=== PATIENT | male | born 1955 | race Caucasian/White ===

== ENCOUNTER 2020-03-10 10:37 | Emergency (ER) | payer MEDICARE, SELFPAY ==
[2020-03-10] VITALS (8 sets, daily range): BP systolic 105–129; BP diastolic 72–86; PULSE 102–104; RESP 18–24; TEMP 37; O2SAT 78–96
--- NOTE | 2020-03-10 10:39 | ED.GENADUL_ITS ---
Discharge Plan Disposition Patient Disposition: AGAINST MEDICAL ADVICE Condition: Serious Discharge Details Chief Complaint: GenMedical Clinical Impression: Hypoxia, Ascites, Pleural effusion, bilateral, Acute liver disease, UTI (urinary tract infection) Primary Care Provider: Jenny Khanna ED Provider: Tere Joseph Home Meds and New Rx's Prescriptions: New cephalexin [Keflex] 500 mg capsule 500 mg PO BID 7 Days Qty: 14 RF: 0 Continued cyanocobalamin (vitamin B-12) [Vitamin B-12] 500 mcg tablet 500 mcg PO DAILY RF: 0 Discharge Instructions Instructions: Cirrhosis (ED), Ascites (ED), Hypoxia (ED) Additional Instructions: You are leaving the hospital AGAINST MEDICAL ADVICE. Your oxygen level is extremely low. Your CAT scan today noted liver disease and fluid in your abdomen and lungs. It is also suspected that you possibly have COPD (chronic obstructive pulmonary disease) from your longstanding smoking history. It is suspected that you likely have liver disease from your longstanding alcohol use. Your fatigue could be due to possible causes, such as an infection in your urine, fluid in your lungs and abdomen, or liver disease. You were given an antibiotic for a possible infection in your urine. You were also given an inhaler to use every day which may help with your breathing and low oxygen level. Follow-up with your primary care doctor today or early Friday morning. Return immediately to the emergency department if you develop any worsening or new concerning symptoms. Discharge Data Discharge Physician: Tere Joseph Medical Decision Making 1130 -- 65yo M w/ no diagnosed medical history who has not seen a doctor for many years presents for fatigue, abdominal bloating and mild discomfort and constipation for 1 week and b/l lower extremity edema x 2 days. Pt appears somewhat disheveled, smells strong of tobacco with abril complexion. O2 sat 80s on room air. He denies any acute complaint of shortness of breath. He has wheezing and rhonchi throughout. Mild to moderate abdominal distention without significant tenderness. He has 1+ bilateral lower extremity edema. Suspect most likely cirrhosis, ascites. Differential could also include pancreatitis, small bowel obstruction. Will place an IV, screening labs, small bolus fluids, CT chest abdomen and pelvis. 1300 --labs and imaging reviewed. Troponin negative. BNP 10471. Lipase normal. Urinalysis notes 20-[address] W[address] and trace leukocytes[address] CT reviewed with radiology which noted small bilateral pleural effusions, liver disease with small amount of ascites but no acute lung or abdominal abnormality. Patient reassessed -oxygen saturation low to mid 90s on 3 L, decreased to high 70s low 80s on room air. Discussed with patient that I suspect he is underlying COPD and recommend that he stay for further evaluation and referral for outpatient management of his newly diagnosed cirrhosis and ascites. Patient is refusing to stay. Despite my efforts, the patient has decided to leave against medical advice. He has a normal mental status and full decisional capacity. The patient understands his condition and the risks of leaving AMA, including BUT NOT LIMITED TO permanent disability, , etc., and has had an opportunity to ask questions about his medical condition. The patient has been informed that he may return for care at any time, and has been referred to his local medical physician for follow up ANMOL. Case was also discussed with Jenny Khanna who had a telemedicine visit with him last week but has never seen him before. She was informed of the results today and recommendation for admission and that patient was leaving AMA. I was able to obtain patient's outpatient labs which were ordered last week from blood drawn today. Patient is advised to call his PCP office today or Friday for follow-up as soon as possible. Patient also stated that he does not have an advance directive but stated to me that he did not want CPR or intubation if needed. He was given a dose of Keflex as well as Symbicort here and for home. Usual and customary return precautions given prior to discharge. Medical Records Medical records reviewed: Yes I reviewed the patient's medical records. Imaging Data Radiologic Study: Radiologist's impression: CT CHEST PE ABD PELVIS W CLINICAL HISTORY: abd bloating, constipation, hypoxic, ? PE, cirrhosis, ascites TECHNIQUE: Imaging Protocol: Axial computed tomography images with coronal and sagittal reformatted images were created and reviewed CONTRAST MATERIAL: Intravenous: Omnipaque 350 Contrast volume:structure 100 mL d data in ml Oral: No COMPARISON: No exams were available for comparison FINDINGS: Pulmonary Arteries: No evidence of filling defect to suggest pulmonary emboli. Tracheobronchial tree: Patent where visualized. Mediastinum and Sarita: No dominant adenopathy or fluid collection. Pulmonary parenchyma: Dependent atelectatic changes are seen in the lung bases. Centrilobular emphysematous changes are present. No pulmonary nodules are present. Pleura: Small bilateral pleural effusions. No pneumothorax. Heart: Mild cardiomegaly. Prominent right atrial enlargement. No coronary artery calcifications are seen. No pericardial effusion. Aorta: Thoracic aorta non-dilated. No dissection. Atherosclerosis. Bones: Degenerative changes in the spine. ABDOMEN: Liver: Normal density. No measurable mass. Nodular contour of the liver suggesting hepatic cirrhosis. Portal, Superior Mesenteric, and Splenic Veins: Unremarkable. Gallbladder and Biliary Tract: No radiodense calculus or dilation. Pancreas: Normal density, no abnormal calcifications or inflammatory process. Spleen: Normal. Adrenals: No masses seen. Kidneys: Normal size, contour and axis. No radiodense stones or obstructive uropathy. No masses seen. Abdominal Aorta: Abdominal portion non-dilated. Atherosclerosis. Bowel: No obstruction or bowel wall thickening. Appendix is unremarkable. Moderate amount of retained stool. Peritoneal Cavity: Moderate amount of abdominal and pelvic ascites. Lymph Nodes: Within normal limits. Bones: Degenerative changes are present. Soft Tissues: Diffuse subcutaneous edema. PELVIS: Bladder: Symmetric distention, no gross wall thickening. Reproductive Organs: Unremarkable as visualized. Prostatic calcifications are present. Lymph Nodes: Within normal limits. Bones: Degenerative changes are present. IMPRESSION: 1. No evidence of pulmonary embolus, thoracic aortic dissection or aneurysm. 2. Small bilateral pleural effusions. 3. Cardiomegaly. 4. Bilateral basilar infiltrates which may represent atelectasis or pneumonia. 5. COPD. 6. Findings consistent with hepatic cirrhosis and moderate ascites. 7. No acute abdominal or pelvic process. 8. The findings were discussed with the emergency department on the date of the examination. Lab Data Lab results reviewed: Yes I reviewed the patient's lab results. Labs: 03/10/20 11:30 Urine - Reflex from Ua Urine Culture - Pending Laboratory Tests Range/Units 03/10/20 03/10/20 03/10/20 11:00 11:00 11:00 WBC (4.4-10.8) k/cumm 8.21 RBC (4.50-6.00) m/cumm 4.62 Hgb (13.5-17.5) g/dL 16.4 Hct (40.0-50.0) % 48.5 MCV (80-95) fL 105.0 H MCH (27.0-33.0) pg 35.5 H MCHC (32.0-36.0) g/dL 33.8 RDW (11.8-14.1) % 15.8 H Plt Count (130-400) x1000/uL 200 MPV (8.0-11.0) fL 9.0 Immature Gran % % 0.1 Neutrophils % 65.3 Lymphocytes % 20.3 Monocytes % 12.1 Eosinophils % 1.8 Basophils % 0.4 Absolute Neutrophils (1.2-6.7) k/cumm 5.36 Absolute Lymphocytes (1.2-3.4) k/cumm 1.67 Absolute Monocytes (0.11-0.7) k/cumm 0.99 H Absolute Eosinophils (0.0-0.7) k/cumm 0.15 Absolute Basophils (0.0-0.2) k/cumm 0.03 PT (9.3-11.0) sec 12.7 H INR (0.9-1.1) 1.3 H APTT (21.0-31.4) sec 25.8 Sodium (136-145) mmol/L 133 L Potassium (3.5-5.1) mmol/L 4.9 Chloride (98-107) mmol/L 95 L Carbon Dioxide (21.0-32.0) mmol/L 36.0 H Anion Gap (3-11) mmol/L 2.0 L BUN (7-18) mg/dL 28 H Creatinine (0.70-1.30) mg/dL 1.18 Estimated GFR/1.73 m2 (mL/min/1.73m2) >= 60.00 Glucose (74-106) mg/dL 102 Hemoglobin A1c (3.8-5.6) % Calcium (8.5-10.1) mg/dL 8.7 Magnesium (1.8-2.4) mg/dL 1.9 Total Bilirubin (0.2-1.0) mg/dL 0.9 AST (15-37) U/L 26 ALT (16-63) U/L 37 Alkaline Phosphatase (46-116) U/L 113 Troponin I (<0.06) ng/Ml < 0.05 NT-Pro-B Natriuret Pep (<300) pg/mL 88143 H Total Protein (6.4-8.2) g/dL 6.9 Albumin (3.4-5.0) g/dL 3.3 L Triglycerides (<150) mg/dL Total Cholesterol (<200) mg/dL LDL Cholesterol, Calc (<100) mg/dL HDL Cholesterol (40-60) mg/dL Lipase (73-393) U/L TSH (0.36-3.74) uIU/mL Urine Color (Yellow) Urine Clarity (Clear) Urine pH (5-8) Ur Specific [place] (1.005-1.025) Urine Protein (Negative) mg/dL Urine Ketones (Negative) mg/dL Urine Blood (Negative) Urine Nitrite (Negative) Urine Bilirubin (Negative) Urine Urobilinogen (Up TO 0.2) EU/dL Ur Leukocyte Esterase (Negative) Urine RBC (0-2) HPF Urine WBC (0-5) HPF Ur Epithelial Cells (Negative) HPF Urine Crystals (Negative) HPF Urine Bacteria (Negative) HPF Urine Casts (Negative) LPF Urine Mucus (Negative) Urine Other (Negative) Ur Culture Indicated? Urine Glucose (Negative) mg/dL Range/Units 03/10/20 03/10/20 03/10/20 11:00 11:00 11:00 WBC (4.4-10.8) k/cumm RBC (4.50-6.00) m/cumm Hgb (13.5-17.5) g/dL Hct (40.0-50.0) % MCV (80-95) fL MCH (27.0-33.0) pg MCHC (32.0-36.0) g/dL RDW (11.8-14.1) % Plt Count (130-400) x1000/uL MPV (8.0-11.0) fL Immature Gran % % Neutrophils % Lymphocytes % Monocytes % Eosinophils % Basophils % Absolute Neutrophils (1.2-6.7) k/cumm Absolute Lymphocytes (1.2-3.4) k/cumm Absolute Monocytes (0.11-0.7) k/cumm Absolute Eosinophils (0.0-0.7) k/cumm Absolute Basophils (0.0-0.2) k/cumm PT (9.3-11.0) sec INR (0.9-1.1) APTT (21.0-31.4) sec Sodium (136-145) mmol/L Potassium (3.5-5.1) mmol/L Chloride (98-107) mmol/L Carbon Dioxide (21.0-32.0) mmol/L Anion Gap (3-11) mmol/L BUN (7-18) mg/dL Creatinine (0.70-1.30) mg/dL Estimated GFR/1.73 m2 (mL/min/1.73m2) Glucose (74-106) mg/dL Hemoglobin A1c (3.8-5.6) % 6.3 H Calcium (8.5-10.1) mg/dL Magnesium (1.8-2.4) mg/dL Total Bilirubin (0.2-1.0) mg/dL AST (15-37) U/L ALT (16-63) U/L Alkaline Phosphatase (46-116) U/L Troponin I (<0.06) ng/Ml NT-Pro-B Natriuret Pep (<300) pg/mL Total Protein (6.4-8.2) g/dL Albumin (3.4-5.0) g/dL Triglycerides (<150) mg/dL 51 Total Cholesterol (<200) mg/dL 111 LDL Cholesterol, Calc (<100) mg/dL 63 HDL Cholesterol (40-60) mg/dL 38 L Lipase (73-393) U/L 62 TSH (0.36-3.74) uIU/mL 1.78 Urine Color (Yellow) Urine Clarity (Clear) Urine pH (5-8) Ur Specific [place] (1.005-1.025) Urine Protein (Negative) mg/dL Urine Ketones (Negative) mg/dL Urine Blood (Negative) Urine Nitrite (Negative) Urine Bilirubin (Negative) Urine Urobilinogen (Up TO 0.2) EU/dL Ur Leukocyte Esterase (Negative) Urine RBC (0-2) HPF Urine WBC (0-5) HPF Ur Epithelial Cells (Negative) HPF Urine Crystals (Negative) HPF Urine Bacteria (Negative) HPF Urine Casts (Negative) LPF Urine Mucus (Negative) Urine Other (Negative) Ur Culture Indicated? Urine Glucose (Negative) mg/dL Range/Units 03/10/20 03/10/20 11:30 13:21 WBC (4.4-10.8) k/cumm Cancelled RBC (4.50-6.00) m/cumm Cancelled Hgb (13.5-17.5) g/dL Cancelled Hct (40.0-50.0) % Cancelled MCV (80-95) fL Cancelled MCH (27.0-33.0) pg Cancelled MCHC (32.0-36.0) g/dL Cancelled RDW (11.8-14.1) % Cancelled Plt Count (130-400) x1000/uL Cancelled MPV (8.0-11.0) fL Cancelled Immature Gran % % Neutrophils % Lymphocytes % Monocytes % Eosinophils % Basophils % Absolute Neutrophils (1.2-6.7) k/cumm Absolute Lymphocytes (1.2-3.4) k/cumm Absolute Monocytes (0.11-0.7) k/cumm Absolute Eosinophils (0.0-0.7) k/cumm Absolute Basophils (0.0-0.2) k/cumm PT (9.3-11.0) sec INR (0.9-1.1) APTT (21.0-31.4) sec Sodium (136-145) mmol/L Potassium (3.5-5.1) mmol/L Chloride (98-107) mmol/L Carbon Dioxide (21.0-32.0) mmol/L Anion Gap (3-11) mmol/L BUN (7-18) mg/dL Creatinine (0.70-1.30) mg/dL Estimated GFR/1.73 m2 (mL/min/1.73m2) Glucose (74-106) mg/dL Hemoglobin A1c (3.8-5.6) % Calcium (8.5-10.1) mg/dL Magnesium (1.8-2.4) mg/dL Total Bilirubin (0.2-1.0) mg/dL AST (15-37) U/L ALT (16-63) U/L Alkaline Phosphatase (46-116) U/L Troponin I (<0.06) ng/Ml NT-Pro-B Natriuret Pep (<300) pg/mL Total Protein (6.4-8.2) g/dL Albumin (3.4-5.0) g/dL Triglycerides (<150) mg/dL Total Cholesterol (<200) mg/dL LDL Cholesterol, Calc (<100) mg/dL HDL Cholesterol (40-60) mg/dL Lipase (73-393) U/L TSH (0.36-3.74) uIU/mL Urine Color (Yellow) Yellow Urine Clarity (Clear) Clear Urine pH (5-8) 5.5 Ur Specific [place] (1.005-1.025) >= 1.030 H Urine Protein (Negative) mg/dL 100 H Urine Ketones (Negative) mg/dL Negative Urine Blood (Negative) Negative Urine Nitrite (Negative) Negative Urine Bilirubin (Negative) Negative Urine Urobilinogen (Up TO 0.2) EU/dL 0.2 Ur Leukocyte Esterase (Negative) Trace H Urine RBC (0-2) HPF 0-2 Urine WBC (0-5) HPF 20-50 H Ur Epithelial Cells (Negative) HPF Rare Urine Crystals (Negative) HPF Negative Urine Bacteria (Negative) HPF Negative Urine Casts (Negative) LPF 20-50 hyaline Urine Mucus (Negative) Negative Urine Other (Negative) Negative Ur Culture Indicated? Yes Urine Glucose (Negative) mg/dL Negative ECG Data Attestation: I personally reviewed and interpreted this ECG (s) as follows: Interpretation: Rate of 101's, sinus, PVCs. Right bundle branch block. No acute ST elevation or depression. FL 140. QTc 490. QRS 148. HPI General Mode of arrival: ambulatory . Date/Time Provider Initiated Documentation: 03/10/20 10:37 . Limitations to Documentation: no limitations . Information obtained by: patient . HPI Narrative: Patient is a 65-year-old male with no diagnosed past medical history who is not regularly followed by a primary care doctor who presents for abdominal bloating and some discomfort, constipation and fatigue for 1 week, and bilateral lower extremity swelling since yesterday. Patient had a telemedicine visit with his PCP office on March 03 for fatigue and labs including TSH, lipid panel, hemoglobin A1c, Lyme titer and CBC were ordered of which patient has not yet obtained. Patient states he has occasional abdominal discomfort but denies any at present. He states he had constipation 1 week ago which improved with taking Ex-Lax a few times this week. His last bowel movement was today and brown and formed. He does state he has a chronic cough due to his smoking but denies any sputum production or fever, chest pain or shortness of breath. He drinks 2-3 beers daily for several years and states his last drink was last night. He denies any vomiting. Related Data Home Medications Medication Instructions Recorded Confirmed cyanocobalamin (vitamin B-12) 500 500 mcg PO DAILY 03/03/20 03/03/20 mcg tablet cephalexin [Keflex] 500 mg PO BID 7 Days #14 cap 03/10/20 Previous Rx's Medication Instructions Recorded cephalexin [Keflex] 500 mg PO BID 7 Days #14 cap 03/10/20 Allergies Allergy/AdvReac Type Severity Reaction Status Date / Time No Known Allergies Allergy Verified 03/03/20 11:25 Review of Systems All systems reviewed & are unremarkable except as noted in HPI and below Constitutional Constitutional: Reports as per HPI, Denies chills, Reports fatigue, Denies fever(s) and Reports poor appetite Eyes Eyes: Denies blurry vision ENT Ears, Nose, Mouth, and Throat: Denies dizziness, Denies sore throat and Denies throat swelling Cardiovascular Cardiovascular: Denies chest pain and Denies dyspnea Respiratory Respiratory: Denies cough and Denies dyspnea Gastrointestinal Gastrointestinal: Denies abdominal pain, Reports bloating, Reports constipation, Denies diarrhea and Denies vomiting Genitourinary Genitourinary: Denies hematuria and Denies dysuria Musculoskeletal Musculoskeletal: Denies back pain and Denies numbness Integumentary/Breasts Skin/Breast: Denies lesions and Denies rash Neurologic Neurologic: Denies dizziness, Denies localized weakness and Denies numbness Endocrine Endocrine: Reports fatigue Allergic/Immunologic Allergic/Immunologic: Denies throat swelling [facility] Medical History (Updated 03/10/20 @ 12:53 by Tere Joseph DO) No significant past medical history (Acute) Surgical History (Updated 03/03/20 @ 08:37 by Dai Tejeda RN) H/O hernia repair (Chronic) 1964 and 1972 Family History (Updated 02/22/20 @ 11:09 by Srinivas Martin) Mother , age 87 No problems noted. Father , age 66 Cancer Brother , age 67 Stroke Brother No problems noted. Maternal Grandfather No problems noted. Paternal Grandfather , age 90 No problems noted. Maternal Grandmother , age 70+ No problems noted. Paternal Grandmother , age 90 No problems noted. Social History (Updated 02/22/20 @ 11:01 by Srinivas Martin) Smoking/Tobacco Use Status: Current every day Tobacco Type: cigarettes Tobacco: How many years used: 50 Quit status: not considering quitting Second Hand Exposure: Yes Alcohol Intake: current Alcohol Intake frequency: 3 or more drinks per day Alcohol type: beer Drug use: Never Substance use type: does not use Caregiver/Support person: No Household members: spouse Housing: house Communication Needs: Corrective Lenses Do you need help understanding health information?: Rarely Pets and animals: No Sexually active: Yes Do you think of yourself as: straight/heterosexual Current gender identity: male What is your relationship status?: How often do you talk on the phone with friends or family?: once per week How often do you get together with friends or relatives?: three or more times per week How often do you attend religion or alevism services?: decline to answer Do you belong to any clubs or organized social groups?: no Panel score (0-1 are the most socially isolated patients): 2 What type of physical activity do you participate in: other Details: farming, firewood Duration: decline to answer Frequency: daily Hortencia/Sabianist: [employer] Special hortencia needs: No Seatbelt use: sometimes Drive intox or ride w/intox road driver: No Exam Const General: cooperative, no acute distress and ill appearing chronically Orientation: alert, awake and oriented x3 HENMT Head: normal to inspection Face and sinus: normal facial exam Eyes General: appearance normal, both eyes and all related structures EOM: EOM intact bilaterally Neck Neck: normal visual inspection and No submandibular swelling Lymphatic: no lymphadenopathy noted Chest Chest: normal inspection of the chest and no tenderness Resp Effort & Inspection: normal respiratory effort and able to speak in complete sentences Auscultation: wheezes lower bilaterally and upper bilaterally Cardio Rate: regular rate Rhythm: regular rhythm GI Inspection: normal to inspection and distended Palpation: soft, not firm, not rigid and nontender Auscultation: normoactive bowel sounds Skin General skin exam: other (abril complexion, purplish color to ears, fingers) Neuro General: patient alert, patient awake and patient oriented x3 Cognition: normal cognition Speech: speech normal Motor: muscle tone normal throughout Sensory Exam: no sensory deficits noted Extrem General: normal to inspection, capillary refill normal, no calf tenderness bilaterally and edema Laterality: bilateral (1+ pitting) Psych Appearance: grossly normal Mental Status: mental status grossly normal Speech and Movement: speech and movement normal Affect: normal affect
[2020-03-10 11:12] LABS: Abs Immature Grans 0.01 k/cumm (0.0-0.09); Absolute Basophil Count 0.03 k/cumm (0.0-0.2); Absolute Eosinophil Count 0.15 k/cumm (0.0-0.7); Absolute Lymphocyte Count 1.67 k/cumm (1.2-3.4); Absolute Monocyte Count 0.99 k/cumm (0.11-0.7); Absolute Neutrophil Count 5.36 k/cumm (1.2-6.7); Basophils % 0.4; Eosinophils % 1.8; HCT 48.5 % (40.0-50.0); HGB 16.4 g/dL (13.5-17.5); Immature Grans % 0.1 %; Lymphocytes % 20.3; Mean Corp. HGB Concentration 33.8 g/dL (32.0-36.0); Mean Corpuscular Hemoglobin 35.5 pg (27.0-33.0); Monocytes % 12.1; Neutrophils % 65.3; Platelet Count 200 x1000/uL (130-400); RBC 4.62 m/cumm (4.50-6.00); RBC Distribution Width 15.8 % (11.8-14.1); White Blood Cell Count 8.21 k/cumm (4.4-10.8)
[2020-03-10] MEDS: Normal Saline 500 ML IV (11:14)
[2020-03-10 11:25] LABS: INR 1.3 (0.9-1.1); PTT Activated 25.8 sec (21.0-31.4); Prothrombin Time 12.7 sec (9.3-11.0)
[2020-03-10 11:32] LABS: ALT 37 U/L (16-63); AST 26 U/L (15-37); Albumin 3.3 g/dL (3.4-5.0); Alkaline Phosphatase 113 U/L (46-116); BUN 28 mg/dL (7-18); Bilirubin, Total 0.9 mg/dL (0.2-1.0); CREATININE 1.18 mg/dL (0.70-1.30); Calcium 8.7 mg/dL (8.5-10.1); Chloride 95 mmol/L (98-107); Glucose 102 mg/dL (74-106); Magnesium 1.9 mg/dL (1.8-2.4); NT-proBNP 13078 pg/mL (<300); Potassium 4.9 mmol/L (3.5-5.1); Sodium 133 mmol/L (136-145); Total Protein 6.9 g/dL (6.4-8.2); Troponin I < 0.05 ng/Ml (<0.06)
[2020-03-10 11:39] LABS: Bilirubin Negative (Negative); Blood Negative (Negative); Clarity Clear (Clear); Glucose Negative (Negative); Ketones Negative (Negative); Leukocyte Esterase Trace (Negative); Nitrite Negative (Negative); Specific Gravity >= 1.030 (1.005-1.025); Urobilinogen 0.2 EU/dL (Up TO 0.2); pH 5.5 (5-8)
[2020-03-10 11:51] LABS: Bacteria Negative HPF (Negative); Crystals Negative HPF (Negative); Epithelial Cells Rare HPF (Negative); Mucus Negative (Negative); Other Cells Negative (Negative); RBC 0-2 HPF (0-2); WBC 20-50 HPF (0-5)
[2020-03-10 11:52] LABS: C & S Indicated? Yes; Casts 20-50 Hyaline LPF (Negative)
--- NOTE | 2020-03-10 11:55 | DI.CT_ITS ---
EXAM: CT CHEST PE ABD PELVIS W CLINICAL HISTORY: abd bloating, constipation, hypoxic, ? PE, cirrhosis, ascites TECHNIQUE: Imaging Protocol: Axial computed tomography images with coronal and sagittal reformatted images were created and reviewed CONTRAST MATERIAL: Intravenous: Omnipaque 350 Contrast volume:structure 100 mL d data in ml Oral: No COMPARISON: No exams were available for comparison FINDINGS: Pulmonary Arteries: No evidence of filling defect to suggest pulmonary emboli. Tracheobronchial tree: Patent where visualized. Mediastinum and Sarita: No dominant adenopathy or fluid collection. Pulmonary parenchyma: Dependent atelectatic changes are seen in the lung bases. Centrilobular emphys ematous changes are present. No pulmonary nodules are present. Pleura: Small bilateral pleural effusions. No pneumothorax. Heart: Mild cardiomegaly. Prominent right atrial enlargement. No coronary artery calcifications are seen. No pericardial effusion. Aorta: Thoracic aorta non-dilated. No dissection. Atherosclerosis. Bones: Degenerative changes in the spine. ABDOMEN: Liver: Normal density. No measurable mass. Nodular contour of the liver suggesting hepatic cirrhosis. Portal, Superior Mesenteric, and Splenic Veins: Unremarkable. Gallbladder and Biliary Tract: No radiodense calculus or dilation. Pancreas: Normal density, no abnormal calcifications or inflammatory process. Spleen: Normal. Adrenals: No masses seen. Kidneys: Normal size, contour and axis. No radiodense stones or obstructive uropathy. No masses seen. Abdominal Aorta: Abdominal portion non-dilated. Atherosclerosis. Bowel: No obstruction or bowel wall thickening. Appendix is unremarkable. Moderate amount of retained stool. Peritoneal Cavity: Moderate amount of abdominal and pelvic ascites. Lymph Nodes: Within normal limits. Bones: Degenerative changes are present. Soft Tissues: Diffuse subcutaneous edema. PELVIS: Bladder: Symmetric distention, no gross wall thickening. Reproductive Organs: Unremarkable as visualized. Prostatic calcifications are present. Lymph Nodes: Within normal limits. Bones: Degenerative changes are present. IMPRESSION: 1. No evidence of pulmonary embolus, thoracic aortic dissection or aneurysm. 2. Small bilateral pleural effusions. 3. Cardiomegaly. 4. Bilateral basilar infiltrates which may represent atelectasis or pneumonia. 5. COPD. 6. Findings consistent with hepatic cirrhosis and moderate ascites. 7. No acute abdominal or pelvic process. 8. The findings were discussed with the emergency department on the date of the examination. RADIATION DOSE DELIVERED: DATA REPOSITORY: All CT scans at this facility are submitted to the National Radiology Data Registry (NRDR) Dose Index Registry (DIR) with the [employer] ([employer]). RADIATION OPTIMIZATION: All CT scans at this facility use at least one of these dose optimization te chniques: automated exposure control; mA and/or kV adjustment per patient size (includes targeted exa ms where dose is matched to clinical indication); or iterative reconstruction.
[2020-03-10 12:18] LABS: Lipase 62 U/L (73-393)
[2020-03-10] MEDS: Budesonide/Formoterol 160/4.5 6 GM 60 PUFF INH IH (12:52)
[2020-03-10] MEDS: Cephalexin 500 MG CAP PO (12:52)
[2020-03-10 14:00] LABS: Hemoglobin A1C 6.3 % (3.8-5.6)
[2020-03-10 14:04] LABS: Calculated LDL 63 mg/dL (<100); Cholesterol 111 mg/dL (<200); HDL Cholesterol 38 mg/dL (40-60); TSH 1.78 uIU/mL (0.36-3.74); Triglyceride 51 mg/dL (<150)
[2020-03-14 14:55] LABS: Lyme Ab w Rflx to Lyme Confirm Negative (Negative)
== END 2020-03-10 13:22 | disposition left against medical advice (07) ==
PROVIDERS: Emergency Provider Physician Assistant; PCP Nurse Practitioner
DX: R18.8 Other ascites; J90 Pleural effusion, not elsewhere classified; K76.9 Liver disease, unspecified; N39.0 Urinary tract infection, site not specified; Z53.29 Procedure and treatment not carried out because of patient's decision for other reasons; J44.9 Chronic obstructive pulmonary disease, unspecified; F17.210 Nicotine dependence, cigarettes, uncomplicated; R09.02 Hypoxemia
CPT/HCPCS: 71275; 74177; 80053; 80061; 83690; 85027; 93005; 96360; 99285; 81003; 81015; 83036; 83735; 83880; 84443; 84484; 85025; 85610; 85730; 86618; 87086; 93010; 99284

== ENCOUNTER 2020-03-12 17:17 | Inpatient (IN) | payer MEDICARE, SELFPAY ==
[2020-03-12] VITALS (19 sets, daily range): BP systolic 102–126; BP diastolic 70–87; PULSE 86–105; RESP 12–27; TEMP 36.6–36.8; O2SAT 71–96
--- NOTE | 2020-03-12 17:30 | DI.RAD_ITS ---
EXAM: XR PORTABLE CHEST AP CLINICAL HISTORY: shortness of breath, r/o acute disease TECHNIQUE: COMPARISON: CT CHEST PE ABD PELVIS W from 03/10/2020 FINDINGS: Portable upright chest at 1850 hours. There is mild cardiomegaly. Lungs are grossly clear. No sign ificant pleural effusion identified on this frontal film. IMPRESSION: No evidence of acute process.
--- NOTE | 2020-03-12 17:53 | W.ED.GENAD ---
Discharge Plan Disposition Patient Disposition: [facility] INPATIENT Condition: Stable Discharge Details Chief Complaint: SOB Clinical Impression: Hypoxia, Acute exacerbation of chronic obstructive pulmonary disease, Ascites due to alcoholic cirrhosis, Elevated troponin, Elevated brain natriuretic peptide (BNP) level Admit Date/Time: 03/12/20 19:12 Admit Provider: Saroj Swanson Attending Provider: Saroj Swanson Primary Care Provider: Jenny Khanna ED Provider: Tere Joseph Discharge Data Discharge Date/Time-TO BE ENTERED AT DEPARTURE: 03/12/20 20:20 Medical Decision Making 1730 -- 65yo male with a history of chronic alcohol and tobacco use found to have hypoxia and COPD, cirrhosis and small amount of ascites on work-up 2 days ago with left AMA from the ED presents for worsening abdominal bloating and dyspnea on exertion. Patient appears chronically ill. He does not appear in any worsening acute distress compared to 2 days ago. O2 sat 71% on room air which is consistent with where his saturations were 2 days ago prior to leaving AMA. He is afebrile. Negative COVID screening questions. He has diminished breath sounds throughout. His abdomen distention is small in size but more tense compared to 2 days ago. His lower extremity edema is stable from 2 days ago. Patient states he is agreeable with staying for admission today. Will admit for hypoxia and worsening abdominal distention. Suspect possibly COPD and worsening ascites, but also consider COVID, pneumonia, ACS, UTI. We give a dose of diuretics to help with fluid overload. Do not think that patient needs urgent paracentesis. Suspect he is also dehydrated and will start gentle fluid hydration. Bladder scan 280mL. Will obtain repeat labs and portable chest x-ray. EKG notes a rate of 92, sinus, right bundle branch block. No acute ST ischemic changes. 1899 --labs and imaging reviewed. Normal hemoglobin and platelets. INR 1.3. Troponin elevated but indeterminate at 0.08. BNP 38459 decreased from 13,078 two days ago. Chest x-ray negative for acute disease. pt reassessed - he states he feels better. Abdomen reexamined and appears less tense, nontender. Vitals stable. Case discussed with hospitalist - accepts patient for admission. Case discussed with surgery rat poisoner - will evaluate pt tomorrow. I do not see an indication for urgent paracentesis at this time as pt is improved. Medical Records Medical records reviewed: Yes I reviewed the patient's medical records. Imaging Data Radiologic Study: Radiologist's impression: XR Chest, 1 View Exam date and time: 03/12/2020 6:45 PM Age: 65 years old Clinical indication: Other: SOB, R/O acute disease TECHNIQUE: Imaging protocol: XR of the chest Views: 1 view. COMPARISON: CT CHEST PE ABD PELVIS W 03/10/2020 11:41 AM FINDINGS: Lungs: Emphysematous changes. No evidence of pneumonia, pulmonary vascular congestion, or pulmonary edema. Pleural space: No pneumothorax. No sizable pleural effusion. Heart/Mediastinum: Mild to moderate cardiomegaly. Bones/joints: Unremarkable. IMPRESSION: Emphysematous changes. No evidence of pneumonia, pulmonary vascular congestion, or pulmonary edema. Lab Data Lab results reviewed: Yes I reviewed the patient's lab results. Labs: 03/12/20 17:55 Urine - Reflex from Ua Urine Culture - Pending Laboratory Tests Range/Units 03/12/20 03/12/20 03/12/20 17:50 17:50 17:50 WBC (4.4-10.8) k/cumm RBC (4.50-6.00) m/cumm Hgb (13.5-17.5) g/dL Hct (40.0-50.0) % MCV (80-95) fL MCH (27.0-33.0) pg MCHC (32.0-36.0) g/dL RDW (11.8-14.1) % Plt Count (130-400) x1000/uL MPV (8.0-11.0) fL Immature Gran % % Neutrophils % Lymphocytes % Monocytes % Eosinophils % Basophils % Absolute Neutrophils (1.2-6.7) k/cumm Absolute Lymphocytes (1.2-3.4) k/cumm Absolute Monocytes (0.11-0.7) k/cumm Absolute Eosinophils (0.0-0.7) k/cumm Absolute Basophils (0.0-0.2) k/cumm RBC Morphology Polychromasia Macrocytosis PT (9.3-11.0) sec 13.5 H INR (0.9-1.1) 1.3 H APTT (21.0-31.4) sec 25.4 Sodium (136-145) mmol/L 136 Potassium (3.5-5.1) mmol/L 4.8 Chloride (98-107) mmol/L 97 L Carbon Dioxide (21.0-32.0) mmol/L 33.7 H Anion Gap (3-11) mmol/L 5.3 BUN (7-18) mg/dL 35 H Creatinine (0.70-1.30) mg/dL 1.08 Estimated GFR/1.73 m2 (mL/min/1.73m2) >= 60.00 Glucose (74-106) mg/dL 109 H Calcium (8.5-10.1) mg/dL 8.6 Magnesium (1.8-2.4) mg/dL 1.8 Total Bilirubin (0.2-1.0) mg/dL 1.1 H AST (15-37) U/L 30 ALT (16-63) U/L 44 Alkaline Phosphatase (46-116) U/L 95 Troponin I (<0.06) ng/Ml 0.08 H* NT-Pro-B Natriuret Pep (<300) pg/mL Total Protein (6.4-8.2) g/dL 6.4 Albumin (3.4-5.0) g/dL 3.0 L Lipase (73-393) U/L 67 Urine Color (Yellow) Urine Clarity (Clear) Urine pH (5-8) Ur Specific [place] (1.005-1.025) Urine Protein (Negative) mg/dL Urine Ketones (Negative) mg/dL Urine Blood (Negative) Urine Nitrite (Negative) Urine Bilirubin (Negative) Urine Urobilinogen (Up TO 0.2) EU/dL Ur Leukocyte Esterase (Negative) Urine RBC (0-2) HPF Urine WBC (0-5) HPF Ur Epithelial Cells (Negative) HPF Urine Crystals (Negative) HPF Urine Bacteria (Negative) HPF Urine Casts (Negative) LPF Urine Mucus (Negative) Urine Other (Negative) Ur Culture Indicated? Urine Glucose (Negative) mg/dL Range/Units 03/12/20 03/12/20 03/12/20 17:50 17:50 17:55 WBC (4.4-10.8) k/cumm 8.58 RBC (4.50-6.00) m/cumm 4.56 Hgb (13.5-17.5) g/dL 15.8 Hct (40.0-50.0) % 48.2 MCV (80-95) fL 105.7 H MCH (27.0-33.0) pg 34.6 H MCHC (32.0-36.0) g/dL 32.8 RDW (11.8-14.1) % 16.0 H Plt Count (130-400) x1000/uL 202 MPV (8.0-11.0) fL 9.2 Immature Gran % % 0.1 Neutrophils % 68.2 Lymphocytes % 18.9 Monocytes % 10.3 Eosinophils % 2.3 Basophils % 0.2 Absolute Neutrophils (1.2-6.7) k/cumm 5.85 Absolute Lymphocytes (1.2-3.4) k/cumm 1.62 Absolute Monocytes (0.11-0.7) k/cumm 0.88 H Absolute Eosinophils (0.0-0.7) k/cumm 0.20 Absolute Basophils (0.0-0.2) k/cumm 0.02 RBC Morphology See below Polychromasia Present Macrocytosis 1+ PT (9.3-11.0) sec INR (0.9-1.1) APTT (21.0-31.4) sec Sodium (136-145) mmol/L Potassium (3.5-5.1) mmol/L Chloride (98-107) mmol/L Carbon Dioxide (21.0-32.0) mmol/L Anion Gap (3-11) mmol/L BUN (7-18) mg/dL Creatinine (0.70-1.30) mg/dL Estimated GFR/1.73 m2 (mL/min/1.73m2) Glucose (74-106) mg/dL Calcium (8.5-10.1) mg/dL Magnesium (1.8-2.4) mg/dL Total Bilirubin (0.2-1.0) mg/dL AST (15-37) U/L ALT (16-63) U/L Alkaline Phosphatase (46-116) U/L Troponin I (<0.06) ng/Ml NT-Pro-B Natriuret Pep (<300) pg/mL 67458 H Total Protein (6.4-8.2) g/dL Albumin (3.4-5.0) g/dL Lipase (73-393) U/L Urine Color (Yellow) Yellow Urine Clarity (Clear) Clear Urine pH (5-8) 5.5 Ur Specific [place] (1.005-1.025) 1.025 Urine Protein (Negative) mg/dL 100 H Urine Ketones (Negative) mg/dL Trace H Urine Blood (Negative) Negative Urine Nitrite (Negative) Negative Urine Bilirubin (Negative) Negative Urine Urobilinogen (Up TO 0.2) EU/dL 1.0 H Ur Leukocyte Esterase (Negative) Small H Urine RBC (0-2) HPF Negative Urine WBC (0-5) HPF 10-20 H Ur Epithelial Cells (Negative) HPF Few Urine Crystals (Negative) HPF Negative Urine Bacteria (Negative) HPF Moderate Urine Casts (Negative) LPF 0-2 hyaline Urine Mucus (Negative) Heavy Urine Other (Negative) Negative Ur Culture Indicated? Yes Urine Glucose (Negative) mg/dL Negative ECG Data Attestation: I personally reviewed and interpreted this ECG (s) as follows: Interpretation: Rate of 92, sinus, right bundle branch block. No acute ST elevation or depression. KS 138. QTc 475. QRS 146. HPI General Mode of arrival: ambulatory. Date/Time Provider Initiated Documentation: 03/12/20 17:26. Limitations to Documentation: no limitations. Information obtained by: patient. HPI Narrative: Patient is a 65-year-old male with a history of chronic alcohol and tobacco use who presents for abdominal bloating and distention, decreased urination and dyspnea on exertion. Patient was here 2 days ago for constipation and abdominal bloating and was found to be hypoxic with evidence of cirrhosis and small ascites on CT. He was advised to stay for admission at that time but had declined and left AMA. At that time, an advanced directive was discussed and he had stated he would prefer DNR/DNI. Discussing this today, he states he is unsure what he would want. He denies any fever, chest pain, vomiting, diarrhea or constipation. He states he has had little urine output today. He states his lower extremity swelling has been constant. He has had a fairly stable appetite. He states he came here at the urging of his . He has not been seen regularly by a primary care doctor. Related Data Home Medications Medication Instructions Recorded Confirmed cyanocobalamin (vitamin B-12) 500 500 mcg PO DAILY 03/03/20 03/12/20 mcg tablet cephalexin [Keflex] 500 mg PO BID 7 Days #14 cap 03/10/20 03/12/20 Previous Rx's Medication Instructions Recorded cephalexin [Keflex] 500 mg PO BID 7 Days #14 cap 03/10/20 Allergies Allergy/AdvReac Type Severity Reaction Status Date / Time No Known Allergies Allergy Verified 03/12/20 17:28 General Stated Complaint: SOB OMER: 2 Review of Systems All systems reviewed & are unremarkable except as noted in HPI and below Constitutional Constitutional: Reports as per HPI, Denies chills and Denies fever(s) Eyes Eyes: Denies blurry vision ENT Ears, Nose, Mouth, and Throat: Denies dizziness, Denies sore throat and Denies throat swelling Cardiovascular Cardiovascular: Denies chest pain and Denies dyspnea Respiratory Respiratory: Denies cough and Denies dyspnea Gastrointestinal Gastrointestinal: Denies abdominal pain, Denies diarrhea and Denies vomiting Genitourinary Genitourinary: Denies hematuria and Denies dysuria Musculoskeletal Musculoskeletal: Denies back pain and Denies numbness Integumentary/Breasts Skin/Breast: Denies lesions and Denies rash Neurologic Neurologic: Denies dizziness, Denies localized weakness and Denies numbness Allergic/Immunologic Allergic/Immunologic: Denies throat swelling [facility] Medical History (Updated 03/13/20 @ 01:54 by Saroj Swanson) Cirrhosis with alcoholism (Acute) Diagnosis per CT findings COPD (chronic obstructive pulmonary disease) (Chronic) No formal PFTs have been performed. Diagnosis based on emphysematous changes on chest x-ray and CT scan and longstanding smoking history Surgical History H/O hernia repair (Chronic) 1964 and 1972 Family History Mother , age 87 No problems noted. Father , age 66 Cancer Brother , age 67 Stroke Brother No problems noted. Maternal Grandfather No problems noted. Paternal Grandfather , age 90 No problems noted. Maternal Grandmother , age 70+ No problems noted. Paternal Grandmother , age 90 No problems noted. Social History (Updated 02/22/20 @ 11:01 by Srinivas Martin) Smoking/Tobacco Use Status: Current every day Tobacco Type: cigarettes Tobacco: How many years used: 50 Quit status: not considering quitting Second Hand Exposure: Yes Alcohol Intake: current Alcohol Intake frequency: 3 or more drinks per day Alcohol type: beer Drug use: Never Substance use type: does not use Caregiver/Support person: No Household members: spouse Housing: house Communication Needs: Corrective Lenses Do you need help understanding health information?: Rarely Pets and animals: No Sexually active: Yes Do you think of yourself as: straight/heterosexual Current gender identity: male What is your relationship status?: How often do you talk on the phone with friends or family?: once per week How often do you get together with friends or relatives?: three or more times per week How often do you attend sabianism or sabianism services?: decline to answer Do you belong to any clubs or organized social groups?: no Panel score (0-1 are the most socially isolated patients): 2 What type of physical activity do you participate in: other Details: farming, firewood Duration: decline to answer Frequency: daily [place]/Synagogue: Judaism Special hortencia needs: No Seatbelt use: sometimes Drive intox or ride w/intox train driver: No Do you feel safe at home: Yes Do you feel safe in your relationship?: Yes Exam Const General: cooperative and ill appearing chronically Orientation: alert, awake and oriented x3 HENMT Head: normal to inspection Ears: hearing grossly normal bilaterally and external ears normal General nose exam: external nose normal Face and sinus: normal facial exam Mouth: oral mucosae normal Teeth and gingiva: dentition normal Throat: posterior oropharynx normal Eyes General: appearance normal, both eyes and all related structures Eyelids: eyelids normal Pupils: PERRL EOM: EOM intact bilaterally Neck Neck: normal visual inspection Lymphatic: no lymphadenopathy noted Chest Chest: normal inspection of the chest Resp Effort & Inspection: normal respiratory effort and able to speak in complete sentences Auscultation: wheezes scattered wheezes Cardio Rate: regular rate Rhythm: regular rhythm GI Inspection: normal to inspection Palpation: soft, not firm, no guarding, no hepatosplenomegaly, no masses and nontender Auscultation: normal bowel sounds Back/Spine/Pelvis Back: no CVA tenderness Neuro General: patient alert and patient awake Cognition: normal cognition Speech: speech normal Gait: normal gait Motor: muscle tone normal throughout Sensory Exam: no sensory deficits noted Extrem General: normal to inspection, full ROM and capillary refill normal Psych Appearance: grossly normal Mental Status: mental status grossly normal Speech and Movement: speech and movement normal Affect: normal affect Thought Process: normal Course Vital Signs Vital signs: Vital Signs Temperature 98.2 F 03/12/20 17:23 Pulse 105 H 03/12/20 17:23 Respiratory Rate 18 03/12/20 17:23 Blood Pressure 117/78 03/12/20 17:23 Pulse Oximetry 71 L 03/12/20 17:23 Temperature 98.2 F 03/12/20 17:23 Temperature Source Tympanic 03/12/20 17:23 Pulse 105 H 03/12/20 17:23 Respiratory Rate 18 03/12/20 17:23 Respiratory Effort Non-Labored 03/12/20 17:28 Blood Pressure 117/78 03/12/20 17:23 Blood Pressure Position Sitting 03/12/20 17:23 Pulse Oximetry 71 L 03/12/20 17:23 Oxygen Delivery Method Room Air 03/12/20 17:23 Oxygen Flow Rate 0 03/12/20 17:23 Pain Level 0 03/12/20 17:23
[2020-03-12] MEDS: Furosemide 40 MG/4 ML VIAL IVP (18:00)
[2020-03-12] MEDS: methylPREDNISolone SUCC 125 MG VIAL IVP (18:02)
[2020-03-12 18:05] LABS: Abs Immature Grans 0.01 k/cumm (0.0-0.09); Absolute Basophil Count 0.02 k/cumm (0.0-0.2); Absolute Lymphocyte Count 1.62 k/cumm (1.2-3.4); Absolute Monocyte Count 0.88 k/cumm (0.11-0.7); Absolute Neutrophil Count 5.85 k/cumm (1.2-6.7); Basophils % 0.2; Eosinophils % 2.3; HCT 48.2 % (40.0-50.0); HGB 15.8 g/dL (13.5-17.5); Immature Grans % 0.1 %; Lymphocytes % 18.9; Mean Corp. HGB Concentration 32.8 g/dL (32.0-36.0); Mean Corpuscular Hemoglobin 34.6 pg (27.0-33.0); Mean Corpuscular Volume 105.7 fL (80-95); Mean Platelet Volume 9.2 fL (8.0-11.0); Monocytes % 10.3; Neutrophils % 68.2; Platelet Count 202 x1000/uL (130-400); RBC 4.56 m/cumm (4.50-6.00); White Blood Cell Count 8.58 k/cumm (4.4-10.8)
[2020-03-12 18:05] LABS: Bilirubin Negative (Negative); Blood Negative (Negative); Clarity Clear (Clear); Glucose Negative (Negative); Ketones Trace mg/dL (Negative); Leukocyte Esterase Small (Negative); Nitrite Negative (Negative); Specific Gravity 1.025 (1.005-1.025); pH 5.5 (5-8)
[2020-03-12 18:15] LABS: Bacteria Moderate HPF (Negative); C & S Indicated? Yes; Casts 0-2 Hyaline LPF (Negative); Crystals Negative HPF (Negative); Epithelial Cells Few HPF (Negative); Mucus Heavy (Negative); Other Cells Negative (Negative); RBC Negative HPF (0-2)
[2020-03-12 18:16] LABS: Lipase 67 U/L (73-393); Magnesium 1.8 mg/dL (1.8-2.4)
[2020-03-12 18:17] LABS: PTT Activated 25.4 sec (21.0-31.4); Prothrombin Time 13.5 sec (9.3-11.0)
[2020-03-12 18:19] LABS: INR 1.3 (0.9-1.1); Macrocytosis 1+; Polychromasia Present
[2020-03-12 18:22] LABS: ALT 44 U/L (16-63); AST 30 U/L (15-37); Alkaline Phosphatase 95 U/L (46-116); Anion Gap 5.3 mmol/L (3-11); BUN 35 mg/dL (7-18); Bilirubin, Total 1.1 mg/dL (0.2-1.0); CO2 33.7 mmol/L (21.0-32.0); CREATININE 1.08 mg/dL (0.70-1.30); Calcium 8.6 mg/dL (8.5-10.1); Chloride 97 mmol/L (98-107); Glucose 109 mg/dL (74-106); Potassium 4.8 mmol/L (3.5-5.1); Sodium 136 mmol/L (136-145); Total Protein 6.4 g/dL (6.4-8.2)
[2020-03-12 18:25] LABS: Troponin I 0.08 ng/Ml (<0.06)
[2020-03-12 18:27] LABS: NT-proBNP 11728 pg/mL (<300)
[2020-03-12] MEDS: Albuterol HFA 8 GM 60 PUFF INH IH (18:41)
[2020-03-12] MEDS: Normal Saline 1,000 ML 80 ML IV (18:42)
--- NOTE | 2020-03-12 19:00 | DI.VRAD_ITS ---
PROCEDURE INFORMATION: Exam: XR Chest, 1 View Exam date and time: 03/12/2020 6:45 PM Age: 65 years old Clinical indication: Other: SOB, R/O acute disease TECHNIQUE: Imaging protocol: XR of the chest Views: 1 view. COMPARISON: CT CHEST PE ABD PELVIS W 03/10/2020 11:41 AM FINDINGS: Lungs: Emphysematous changes. No evidence of pneumonia, pulmonary vascular congestion, or pulmonary edema. Pleural space: No pneumothorax. No sizable pleural effusion. Heart/Mediastinum: Mild to moderate cardiomegaly. Bones/joints: Unremarkable. IMPRESSION: Emphysematous changes. No evidence of pneumonia, pulmonary vascular congestion, or pulmonary edema. Dictated and Authenticated by: Reggie Farris MD. Ordering:KODY Carranza MD
[2020-03-12 19:34] LABS: BE 11.1 mmol/L (-3-3); HCO3 37 mmol/L (22-28); pH 7.35 (7.35-7.45); pO2 65 mmHg (83-108); sO2 90 % (94-98); tCO2 32 mmol/L (22-29)
[2020-03-12 19:38] LABS: pCO2 67 mmHg (34-47)
--- NOTE | 2020-03-12 21:58 | HPE_ITS ---
Date of service: 03/12/20 Time of Service: 21:58 Assessment and Plan Assessment and plan (1) Right heart failure: Status: Acute Assessment and plan: lasix drip, monitor urine output, continue serial tro ponins; obtain formal echocardiogram once his COVID 19 test rules out. monitor electrolytes. consider PSG for evaluation of VEDA once he is discharged. Consider inpatient BIPAP during sleep. For now he is being ruled out for COVID 19 and therefore I have not initiated BIPAP as long as his SPO2 remains adequate i.e. 85-90%. However if he becomes somnolent and non-arouseable, I would have a high index of suspicion for hypercarbic respiratory failure. For now he seems to be compensated, i.e. CO2 although in the 60's% his pH is 7.35. Although I did not save images of US of his legs, his veins in both legs were compressible and therefore he has no evidence for DVT, therefore I do not feel that he has a P.E. as a cause for his pulmonary hypertension. However, if he is not responding to lasix overnight then we may need to reconsider P.E. as a cause, however, he underwent a CT of his chest as well as his abdomen and pelvis on Saturday 03/10 and he had no P.E. then. Qualifiers: Heart failure chronicity: unspecified Qualified Code(s): I50.810 - Right heart failure, unspecified (2) Elevated troponin: Status: Acute Assessment and plan: probably d/t right heart strain from RV volume/pressure overload, although can not exclude ischemic event, his LV function is well preserved on POCUS exam. Will cycle his troponin levels to ensure that they plateau and fall. (3) Elevated brain natriuretic peptide (BNP) level: Status: Acute Assessment and plan: secondary to above pullmonary HTN/RV strain (4) Acute exacerbation of chronic obstructive pulmonary disease: Status: Suspected Assessment and plan: Although he was signed out to me as a COPD exacerbation, I think his wheezing is more cardiac wheezing as he has bilateral B lines and evidence of RV strain and pulmonary HTN. He will continue to receive MDI bronchodilators for now and I will change his solumedrol to prednisone but limit him to short course. (5) Ascites: Status: Acute Assessment and plan: I expect that this will need paracentesis for both diagnostic purposes as well as to relieve his distension. This contributes to his work of breathing by pushing up on his diaphragm and therepeutic paracentesis will help with his breathing. Dr. Emmanuel can see him tomorrow for this. She was notified of the consult by Dr. Joseph. Qualifiers: Ascites type: due to alcoholic cirrhosis Qualified Code(s): K70.31 - Alcoholic cirrhosis of liver with ascites (6) Pleural effusion, bilateral: Status: Acute Assessment and plan: His pleural effusions are small and not amenable to thoracentesis. I think by controlling his volume status we can manage his pleural effusions. (7) Cirrhosis with alcoholism: Status: Acute Assessment and plan: This is a presumed dx based on his alcohol history. However, we are awaiting hepatitis studies and AFP marker. He should have a fo rmal abdominal US once his COVID 19 test is negative. He denies any hx of hallucinations or acute withdrawal. I will nevertheless put him on CIWA monitoring. Qualifiers: Ascites presence: with ascites Qualified Code(s): K70.31 - Alcoholic cirrhosis of liver with ascites History of Present Illness History of Present Illness Chief Complaint: shortness of breath, fatigue, abdominal bloating, leg edema Narrative: 65-year-old male with a history of chronic alcohol use and tobaccoism who it presented to the emergency department 2 days prior for evaluation of abdominal bloating and dyspnea on exertion, fatigue and constipation and bilateral lower extremity edema. He had an extensive work-up through the emergency department on March 10, [address] scan of the chest abdomen pelvis as well as lab work. CT of the chest abdomen pelvis showed no evidence of pulmonary embolus nor any aortic aneurysm or dissection. He was found to have cardiomegaly and bilateral small pleural effusions and bibasilar infiltrates suggestive of atelectasis as well as evidence for centrilobular emphysema and evidence for hepatic cirrhosis and moderate ascites. Lab work-up at that time showed negative troponins but an elevated proBNP of 13,000 normal lipase and urinalysis with pyuria. On presentation he was hypoxemic with oxygen saturation in the high 70s and low 80s on room air that corrected with 3 L/min per nasal cannula into the low to mid 90s. It was recommended that he be admitted for evaluation of his ascites but did patient declined admission. He was discharged home on Keflex for probable UTI. Patient re-presents to the emergency department with continued abdominal distention and discomfort and bilateral lower extremity edema and exertional dyspnea. He denies any fever or chills or dysuria. His urine cultures come back no growth at 48 hours. He underwent repeat laboratory testing and EKG and chest x-ray. CMP was remarkable for elevated BUN 35 with a normal creatinine 1.0 and an increased carbon dioxide level of 33.7. Total bilirubin was 1.1 otherwise LFTs were normal. Troponin level is slightly elevated but indetermina te at 0.08 however repeat level 4 hours later came down to 0.07. Repeat proBNP is still elevated 11,728. ABG demonstrates hypoxemia and hypercarbia with a pH of 7.35 and a PCO2 of 67 and a PO2 of 65 with a base excess of 11.1 and an oxygen saturation of 90%. His EKG is remarkable for a right bundle branch block with evidence of right ventricular strain rhythm is sinus rhythm at a rate of 92 bpm. Chest x-ray was read as showing emphysematous changes with no evidence of pneumonia and no evidence of pulmonary vascular congestion or pulmonary edema. There is mild to moderate cardiomegaly. Treatment in the emergency department included an albuterol MDI along with methylprednisolone 125 mg IV and was started on saline at 80 mL an hour however he was also given furosemide 40 mg IV.. Although the patient has no fever and no history of COVID-19 exposure because of his acute respiratory symptoms patient will undergo testing for COVID-19. He is admitted to the respiratory medical/surgical unit pending results of his COVID-19. Nasal swab for influenza was also obtained and found to be negative for influenza a and B antigens. As the patient has no fever and no purulent sputum and no leukocytosis antibiotics have not been initiated. He was signed out to me by the ER doctor is having COPD exacerbation along with liver cirrhosis and ascites. Dr. Joseph spoke with Dr. Aleena Emmanuel, general surgeon, regarding the patient's ascites and possible need for paracentesis. Review of Systems Constitutional Constitutional: Reports daytime sleepiness, Reports fatigue, Reports lethargy, Reports snoring and Reports weakness Eyes Eyes: Reports system reviewed and no additional complaints, except as documented ENT Ears, Nose, Mouth, and Throat: Reports system reviewed and no additional complaints, except as documented Cardiovascular Cardiovascular: Denies chest pain, Reports leg edema, Denies radiating jaw, neck or arm pain, Reports dyspnea, Reports dyspnea on exertion and Reports orthopnea Respiratory Respiratory: Denies change in phlegm color, Denies chest congestion, Reports cough, Denies hemoptysis, Denies excessive phlegm production, Denies pain on inspiration, Denies pain with cough, Reports dyspnea, Reports dyspnea on exertion, Reports snoring and Reports wheezing Gastrointestinal Gastrointestinal: Reports abdominal pain (Crampy), Denies melena, Reports bloating, Denies constipation (Last BM yesterday), Reports early satiety, Denies diarrhea, Denies nausea and Denies vomiting Genitourinary Genitourinary: Reports system reviewed and no additional complaints, except as documented Musculoskeletal Musculoskeletal: Reports system reviewed and no additional complaints, except as documented Integumentary/Breasts Skin/Breast: Reports system reviewed and no additional complaints, except as documented Neurologic Neurologic: Reports system reviewed and no additional complaints, except as documented and Reports weakness Psychiatric Psychiatric: Reports system reviewed and no additional complaints, except as documented Endocrine Endocrine: Reports fatigue Hematologic/Lymphatic Hematologic/Lymphatic: Reports system reviewed and no additional complaints, except as documented Allergic/Immunologic Allergic/Immunologic: Reports wheezing [facility] Medical History (Updated 03/13/20 @ 01:54 by Saroj Swanson) Cirrhosis with alcoholism (Acute) Diagnosis per CT findings COPD (chronic obstructive pulmonary disease) (Chronic) No formal PFTs have been performed. Diagnosis based on emphysematous changes on chest x-ray and CT scan and longstanding smoking history Surgical History H/O hernia repair (Chronic) 1964 and 1972 Family History Mother , age 87 No problems noted. Father , age 66 Cancer Brother , age 67 Stroke Brother No problems noted. Maternal Grandfather No problems noted. Paternal Grandfather , age 90 No problems noted. Maternal Grandmother , age 70+ No problems noted. Paternal Grandmother , age 90 No problems noted. Social History (Updated 02/22/20 @ 11:01 by Srinivas Martin) Smoking/Tobacco Use Status: Current every day Tobacco Type: cigarettes Tobacco: How many years used: 50 Quit status: not considering quitting Second Hand Exposure: Yes Alcohol Intake: current Alcohol Intake frequency: 3 or more drinks per day Alcohol type: beer Drug use: Never Substance use type: does not use Caregiver/Support person: No Household members: spouse Housing: house Communication Needs: Corrective Lenses Do you need help understanding health information?: Rarely Pets and animals: No Sexually active: Yes Do you think of yourself as: straight/heterosexual Current gender identity: male What is your relationship status?: How often do you talk on the phone with friends or family?: once per week How often do you get together with friends or relatives?: three or more times per week How often do you attend zoroastrianism or adventist services?: decline to answer Do you belong to any clubs or organized social groups?: no Panel score (0-1 are the most socially isolated patients): 2 What type of physical activity do you participate in: other Details: farming, firewood Duration: decline to answer Frequency: daily Hortencia/Pentecostal: Yazidi Special hortencia needs: No Seatbelt use: sometimes Drive intox or ride w/intox driver education road instructor: No Do you feel safe at home: Yes Do you feel safe in your relationship?: Yes Meds Home Medications and Allergies Home Medications Medication Instructions Recorded Confirmed Type cyanocobalamin (vitamin B-12) 500 500 mcg PO DAILY 03/03/20 03/12/20 History mcg tablet cephalexin [Keflex] 500 mg PO BID 7 Days #14 cap 03/10/20 03/12/20 Rx Allergies Allergy/AdvReac Type Severity Reaction Status Date / Time No Known Allergies Allergy Verified 03/12/20 17:28 Exam Narrative Exam Narrative: Middle-age male lying in bed in semi-recumbent position who upon my initial interview with him was falling asleep in mid sentence and unable to focus on my questions. I found that he had a oxygen facemask at 5 L/min and his oxygen saturation was in the high 90s. I took his facemask off briefly to allow him to desaturate into the low 80s and then reapplied his mask at 3 L/min and his saturations settle at 88 to 90%. Afterwards he was able to awaken and focus long enough to answer my questions. I found him to be alert and oriented person place time and circumstance. He was able to correctly name the hospital as well as why he came to the hospital as well as giving the correct month and year although he was off on the date and the month by 2 days. HEENT is unremarkable. Neck is supple nontender with normal carotid pulses without bruits. There is prominent JVD to the angle of his jaw. Positive hepatojugular reflux. No cervical lymphadenopathy and no thyromegaly. Lungs revealed bibasilar rales and end expiratory wheezes. No rhonchi. Heart is regular to slightly tachycardic without appreciable murmur rub or gallop. However heart tones were difficult to auscultate due to the poor quality stethoscope I was using in addition to wearing PAPR mask. Abdomen is protuberant and distended but is soft. There is no caput Medusae venous changes. Shifting fluid wave is present consistent w/ ascites. Unable to palpate for organomegaly. Bowel sounds present. Mild tenderness over mid abdomen w/ palpation but no guarding or rebound tenderness. Lower extremities with 3+ pitting edema from just below the knees down to the ankles. Pedal pulses are normal. No peripheral cyanosis. No calf tenderness. Neuro exam is nonfocal. Initially he was lethargic and difficult to keep him awake. However once I titrate his oxygen down he was able to maintain his focus and answer my questions. Later under my exam he did drift to sleep again and would wake up at various times of the exam. He followed commands completely and showed no evidence for weakness in his upper or lower extremities and showed no evidence of loss of sensation. I did not detect any asterixis. Results Labs Result diagrams: 03/12/20 17:50 03/12/20 17:50 Labs: Laboratory Results - last 24 hr 03/12/20 03/12/20 03/12/20 17:50 17:50 17:50 WBC RBC Hgb Hct MCV MCH MCHC RDW Plt Count MPV Immature Gran % Neutrophils % Lymphocytes % Monocytes % Eosinophils % Basophils % Absolute Neutrophils Absolute Lymphocytes Absolute Monocytes Absolute Eosinophils Absolute Basophils RBC Morphology Polychromasia Macrocytosis PT 13.5 H INR 1.3 H APTT 25.4 ABG pH ABG pCO2 ABG pO2 ABG HCO3 ABG Total CO2 ABG O2 Saturation ABG Base Excess Sodium 136 Potassium 4.8 Chloride 97 L Carbon Dioxide 33.7 H Anion Gap 5.3 BUN 35 H Creatinine 1.08 Estimated GFR/1.73 m2 >= 60.00 Glucose 109 H Calcium 8.6 Magnesium 1.8 Total Bilirubin 1.1 H AST 30 ALT 44 Alkaline Phosphatase 95 Troponin I 0.08 H* NT-Pro-B Natriuret Pep Total Protein 6.4 Albumin 3.0 L Lipase 67 Urine Color Urine Clarity Urine pH Ur Specific [place] Urine Protein Urine Ketones Urine Blood Urine Nitrite Urine Bilirubin Urine Urobilinogen Ur Leukocyte Esterase Urine RBC Urine WBC Ur Epithelial Cells Urine Crystals Urine Bacteria Urine Casts Urine Mucus Urine Other Ur Culture Indicated? Urine Glucose 03/12/20 03/12/20 03/12/20 17:50 17:50 17:55 WBC 8.58 RBC 4.56 Hgb 15.8 Hct 48.2 MCV 105.7 H MCH 34.6 H MCHC 32.8 RDW 16.0 H Plt Count 202 MPV 9.2 Immature Gran % 0.1 Neutrophils % 68.2 Lymphocytes % 18.9 Monocytes % 10.3 Eosinophils % 2.3 Basophils % 0.2 Absolute Neutrophils 5.85 Absolute Lymphocytes 1.62 Absolute Monocytes 0.88 H Absolute Eosinophils 0.20 Absolute Basophils 0.02 RBC Morphology See below Polychromasia Present Macrocytosis 1+ PT INR APTT ABG pH ABG pCO2 ABG pO2 ABG HCO3 ABG Total CO2 ABG O2 Saturation ABG Base Excess Sodium Potassium Chloride Carbon Dioxide Anion Gap BUN Creatinine Estimated GFR/1.73 m2 Glucose Calcium Magnesium Total Bilirubin AST ALT Alkaline Phosphatase Troponin I NT-Pro-B Natriuret Pep 82998 H Total Protein Albumin Lipase Urine Color Yellow Urine Clarity Clear Urine pH 5.5 Ur Specific [place] 1.025 Urine Protein 100 H Urine Ketones Trace H Urine Blood Negative Urine Nitrite Negative Urine Bilirubin Negative Urine Urobilinogen 1.0 H Ur Leukocyte Esterase Small H Urine RBC Negative Urine WBC 10-20 H Ur Epithelial Cells Few Urine Crystals Negative Urine Bacteria Moderate Urine Casts 0-2 hyaline Urine Mucus Heavy Urine Other Negative Ur Culture Indicated? Yes Urine Glucose Negative 03/12/20 03/12/20 19:29 20:55 WBC RBC Hgb Hct MCV MCH MCHC RDW Plt Count MPV Immature Gran % Neutrophils % Lymphocytes % Monocytes % Eosinophils % Basophils % Absolute Neutrophils Absolute Lymphocytes Absolute Monocytes Absolute Eosinophils Absolute Basophils RBC Morphology Polychromasia Macrocytosis PT INR APTT ABG pH 7.35 ABG pCO2 67 H* ABG pO2 65 L ABG HCO3 37 H ABG Total CO2 32 H ABG O2 Saturation 90 L ABG Base Excess 11.1 H Sodium Potassium Chloride Carbon Dioxide Anion Gap BUN Creatinine Estimated GFR/1.73 m2 Glucose Calcium Magnesium Total Bilirubin AST ALT Alkaline Phosphatase Troponin I < 0.05 NT-Pro-B Natriuret Pep Total Protein Albumin Lipase Urine Color Urine Clarity Urine pH Ur Specific [place] Urine Protein Urine Ketones Urine Blood Urine Nitrite Urine Bilirubin Urine Urobilinogen Ur Leukocyte Esterase Urine RBC Urine WBC Ur Epithelial Cells Urine Crystals Urine Bacteria Urine Casts Urine Mucus Urine Other Ur Culture Indicated? Urine Glucose Last Vital Signs Temp 36.6 C 03/12/20 21:21 Pulse 91 H 03/12/20 21:21 Resp 18 03/12/20 21:21 BP 117/75 03/12/20 21:21 Pulse Ox 92 L 03/12/20 21:21 COVID-19 Screening Traveled to [place] from one of the affected countries or regions?: NO Recent travel in the [facility] within the last 8 weeks?: No Recent out of the country travel within the last 8 weeks?: No Exposure or possible exposure to illness during travel?: No Had IN PERSON contact w/suspected or confirmed C-19 person: No Have you had the following symptoms in the past few days?: No Medical treatment received for symptoms/illness related to travel?: sob Point of Care Ultrasound Note: Lung Ultrasound COVID-19 Report Scan each region taking an image from each area that best represents relevant pathology. Where a patient cannot be rolled and is supine, images at the posterior axillary line may replace true posterior images. Right Description Left Description R1: Right upper anterior B0 C0 L1: Left upper anterior B0, C0 R2: Right lower anterior B + +, C0 L2: Left lower anterior B + +, C0 R3: Right upper axilla B0, C0 L3: Left upper axilla B0,C0 R4: Right lower axilla B++,C0 L4: Left lower axilla B++,C0 R5: Right upper posterior B0,C0 L5: Left upper posterior B0,C0 R6: Right lower posterior B++,C0 L6: Left lower posterior B++,C0 Shane: B-lines: B0 <3 per image (normal) B+ 3-7 per rib space (mild) B++ >7 per rib space (moderate) B+++ confluent B-lines (severe) B line distribution: Describee as focal, multifocal, or diffuse within that region Consolidation: C0 None C+ Irregular pleural line, thin subpleural consolidation C++ Small areas of consolidations (< 1 cm depth) C+++ Large areas of consolidation Effusion: Describe maximal depth from chest wall to lung or diaphragm to lung Comments: Small bilateral pleural effusions with mild bilateral lower lobe a telectasis, bilateral focal lower lung B lines consistent w/ interstitial lung process, no lung consolidations seen. Clinician signature: Noel Swanson M.D. Date/Time: March 13, 2020, 1 AM . Indication: A focused ultrasound exam of the heart waas performed to evaluate for pericardia l effusion, tamponade, severe hypovolemia, or gross abnormalities of the cardiac anatomy or function in this patient. The ultrasound was performed with the following indications, as noted in the H&P or progress notes: [] chest pain [] cardiac arrest X dyspnea [] effusion [] hypotension [] syncope [] trauma [] other indications as noted in H&P/progress notes Identified structures: The pericardial sac, myocardium, and 4 chambers were identified using the following views: X parasternal long axis (PLAX) X parasternal short axis (PSAX) X apical 4 chamber view X subxiphoid Findings: Exam of the above structures revealed the following findings: Pericardial effusion: X absent [] present If present: [] small [] moderate [] large Pericardial tamponade: X absent [] present Cardiac filling: [] adequate [] underfilled X overfilled Grossly normal LV function: X yes [] no If LV dysfunction: [] mild [] moderate [] severe Gross RV vs LV size: [] normal X abnormal IVC collapsibility: X normal [] >70% [] <30% Other: RV and RA dilatation Impression: [] Normal [] Pericardial effusion [] Diminished LV function X other grossly normal LV systolic function however there is evidence of right ventricular volume and pressure overload as demonstrated by grossly enlarged RV with the RV size greater than LV size and intraventricular septal bowing with D-shaped deformity of the interventricular septum during diastole. RV function is diffusely hypokinetic. There is right atrial enlargement and evidence for at least moderate tricuspid regurgitation. No pericardial effusion. Bilateral pleural effusions are present. IVC is enlarged but demonstrates adequate collapsibility with inspiration. Physician signature: Noel Swanson M.D. Date: March 13, 2020 time: 1 AM CPT code 78918 (limited echocardiography)
--- NOTE | 2020-03-12 22:21 | W.SURGCON ---
Date of service: 03/13/20 Time of Service: 10:21 Assessment and Plan Assessment and plan (1) Ascites due to alcoholic cirrhosis: Status: Acute Assessment and plan: paracentisis on hold at this point. labs adn CT's reviewed. PPI send for hep studies consider US w/ portal pressures. (2) UTI (urinary tract infection): Status: Acute (3) Ascites: Status: Acute History of Present Illness Narrative: pt was in ED on Friday w/ sob and edema. He was duiresis and went home. He returns today w/ increasing ascites and SOB. He was on a bumex drip overnight and had good response. He has no abdominal pain. He is SOB, but he states this is better. He has small amount of ascites clinically. He had minimal on his CT. He does have muscle wasting. His belly is soft and non tender. On US today, he has minimal. He has not had work-up. He has no signs of SBP. Dr. Barros did not feel that he wanted fluid for work-up. At this time He doesn't need paracentisis for symptom relief, or diagnostic work up. His liver failure is most likely from ETOH. Hepatitis studies are pd. Consults Consult date: 03/13/20 Review of Systems Narrative: sob and decompensated COPD/CHF more so than acute liver failure. All systems reviewed & are unremarkable except as noted in HPI and below PFSH Medical History (Updated 03/13/20 @ 01:54 by Saroj Swanson) Cirrhosis with alcoholism (Acute) Diagnosis per CT findings COPD (chronic obstructive pulmonary disease) (Chronic) No formal PFTs have been performed. Diagnosis based on emphysematous changes on chest x-ray and CT scan and longstanding smoking history Surgical History H/O hernia repair (Chronic) 1964 and 1972 Family History Mother , age 87 No problems noted. Father , age 66 Cancer Brother , age 67 Stroke Brother No problems noted. Maternal Grandfather No problems noted. Paternal Grandfather , age 90 No problems noted. Maternal Grandmother , age 70+ No problems noted. Paternal Grandmother , age 90 No problems noted. Social History (Updated 02/22/20 @ 11:01 by Srinivas Martin) Smoking/Tobacco Use Status: Current every day Tobacco Type: cigarettes Tobacco: How many years used: 50 Quit status: not considering quitting Second Hand Exposure: Yes Alcohol Intake: current Alcohol Intake frequency: 3 or more drinks per day Alcohol type: beer Drug use: Never Substance use type: does not use Caregiver/Support person: No Household members: spouse Housing: house Communication Needs: Corrective Lenses Do you need help understanding health information?: Rarely Pets and animals: No Sexually active: Yes Do you think of yourself as: straight/heterosexual Current gender identity: male What is your relationship status?: How often do you talk on the phone with friends or family?: once per week How often do you get together with friends or relatives?: three or more times per week How often do you attend bahai or mandaen services?: decline to answer Do you belong to any clubs or organized social groups?: no Panel score (0-1 are the most socially isolated patients): 2 What type of physical activity do you participate in: other Details: farming, firewood Duration: decline to answer Frequency: daily Hortencia/Islam: Jainism Special hortencia needs: No Seatbelt use: sometimes Drive intox or ride w/intox driver's license examiner: No Do you feel safe at home: Yes Do you feel safe in your relationship?: Yes Exam GI Palpation: soft and ascites (minimal on US today ) Percussion: fluid wave Other: non tender. no paintoday. no hernias. Extrem Other: b/l LE edema. pt says it is improved from yesterday. +1 moving both independently Results Last Vital Signs Temp 36.6 C 03/12/20 21:21 Pulse 91 H 03/12/20 21:21 Resp 18 03/12/20 21:21 BP 117/75 03/12/20 21:21 Pulse Ox 95 03/12/20 22:17 Labs Result diagrams: 03/13/20 06:56 03/13/20 06:56 Labs: Laboratory Results - last 24 hr 03/12/20 03/12/20 03/12/20 17:50 17:50 17:50 WBC RBC Hgb Hct MCV MCH MCHC RDW Plt Count MPV Immature Gran % Neutrophils % Lymphocytes % Monocytes % Eosinophils % Basophils % Absolute Neutrophils Absolute Lymphocytes Absolute Monocytes Absolute Eosinophils Absolute Basophils RBC Morphology Polychromasia Macrocytosis PT 13.5 H INR 1.3 H APTT 25.4 ABG pH ABG pCO2 ABG pO2 ABG HCO3 ABG Total CO2 ABG O2 Saturation ABG Base Excess Sodium 136 Potassium 4.8 Chloride 97 L Carbon Dioxide 33.7 H Anion Gap 5.3 BUN 35 H Creatinine 1.08 Estimated GFR/1.73 m2 >= 60.00 Glucose 109 H Calcium 8.6 Magnesium 1.8 Total Bilirubin 1.1 H AST 30 ALT 44 Alkaline Phosphatase 95 Troponin I 0.08 H* NT-Pro-B Natriuret Pep Total Protein 6.4 Albumin 3.0 L Lipase 67 Urine Color Urine Clarity Urine pH Ur Specific [address] Urine Protein Urine Ketones Urine Blood Urine Nitrite Urine Bilirubin Urine Urobilinogen Ur Leukocyte Esterase Urine RBC Urine WBC Ur Epithelial Cells Urine Crystals Urine Bacteria Urine Casts Urine Mucus Urine Other Ur Culture Indicated? Urine Glucose 03/12/20 03/12/20 03/12/20 17:50 17:50 17:55 WBC 8.58 RBC 4.56 Hgb 15.8 Hct 48.2 MCV 105.7 H MCH 34.6 H MCHC 32.8 RDW 16.0 H Plt Count 202 MPV 9.2 Immature Gran % 0.1 Neutrophils % 68.2 Lymphocytes % 18.9 Monocytes % 10.3 Eosinophils % 2.3 Basophils % 0.2 Absolute Neutrophils 5.85 Absolute Lymphocytes 1.62 Absolute Monocytes 0.88 H Absolute Eosinophils 0.20 Absolute Basophils 0.02 RBC Morphology See below Polychromasia Present Macrocytosis 1+ PT INR APTT ABG pH ABG pCO2 ABG pO2 ABG HCO3 ABG Total CO2 ABG O2 Saturation ABG Base Excess Sodium Potassium Chloride Carbon Dioxide Anion Gap BUN Creatinine Estimated GFR/1.73 m2 Glucose Calcium Magnesium Total Bilirubin AST ALT Alkaline Phosphatase Troponin I NT-Pro-B Natriuret Pep 44139 H Total Protein Albumin Lipase Urine Color Yellow Urine Clarity Clear Urine pH 5.[address] 1.025 Urine Protein 100 H Urine Ketones Trace H Urine Blood Negative Urine Nitrite Negative Urine Bilirubin Negative Urine Urobilinogen 1.0 H Ur Leukocyte Esterase Small H Urine RBC Negative Urine WBC 10-20 H Ur Epithelial Cells Few Urine Crystals Negative Urine Bacteria Moderate Urine Casts 0-2 hyaline Urine Mucus Heavy Urine Other Negative Ur Culture Indicated? Yes Urine Glucose Negative 04/19/20 04/19/20 19:29 20:55 WBC RBC Hgb Hct MCV MCH MCHC RDW Plt Count MPV Immature Gran % Neutrophils % Lymphocytes % Monocytes % Eosinophils % Basophils % Absolute Neutrophils Absolute Lymphocytes Absolute Monocytes Absolute Eosinophils Absolute Basophils RBC Morphology Polychromasia Macrocytosis PT INR APTT ABG pH 7.35 ABG pCO2 67 H* ABG pO2 65 L ABG HCO3 37 H ABG Total CO2 32 H ABG O2 Saturation 90 L ABG Base Excess 11.1 H Sodium Potassium Chloride Carbon Dioxide Anion Gap BUN Creatinine Estimated GFR/1.73 m2 Glucose Calcium Magnesium Total Bilirubin AST ALT Alkaline Phosphatase Troponin I Cancelled NT-Pro-B Natriuret Pep Total Protein Albumin Lipase Urine Color Urine Clarity Urine pH Ur Specific [address] Urine Protein Urine Ketones Urine Blood Urine Nitrite Urine Bilirubin Urine Urobilinogen Ur Leukocyte Esterase Urine RBC Urine WBC Ur Epithelial Cells Urine Crystals Urine Bacteria Urine Casts Urine Mucus Urine Other Ur Culture Indicated? Urine Glucose
[2020-03-12 22:41] LABS: Troponin I 0.07 ng/Ml (<0.06)
[2020-03-13] VITALS (10 sets, daily range): BP systolic 93–115; BP diastolic 58–76; PULSE 78–95; RESP 14–20; TEMP 36.8–37.2; O2SAT 90–98
[2020-03-13] MEDS: Furosemide 100 MG/10 ML VIAL 80 MG IVP (01:59)
[2020-03-13] MEDS: methylPREDNISolone SUCC 125 MG VIAL 60 MG IVP (02:01)
[2020-03-13] MEDS: Pantoprazole 40 MG VIAL IVP ×2 (02:02→21:51)
[2020-03-13 02:37] LABS: Troponin I 0.06 ng/Ml (<0.06)
[2020-03-13 07:23] LABS: Abs Immature Grans 0.01 k/cumm (0.0-0.09); Absolute Lymphocyte Count 0.33 k/cumm (1.2-3.4); Absolute Monocyte Count 0.07 k/cumm (0.11-0.7); Absolute Neutrophil Count 4.54 k/cumm (1.2-6.7); HCT 51.8 % (40.0-50.0); HGB 16.5 g/dL (13.5-17.5); Immature Grans % 0.2 %; Lymphocytes % 6.7; Mean Corp. HGB Concentration 31.9 g/dL (32.0-36.0); Mean Corpuscular Hemoglobin 34.1 pg (27.0-33.0); Mean Platelet Volume 9.3 fL (8.0-11.0); Monocytes % 1.4; Neutrophils % 91.7; Platelet Count 194 x1000/uL (130-400); RBC 4.84 m/cumm (4.50-6.00); RBC Distribution Width 15.9 % (11.8-14.1); White Blood Cell Count 4.95 k/cumm (4.4-10.8)
[2020-03-13 07:24] LABS: Ammonia 50 umol/L (11-32)
[2020-03-13 07:38] LABS: Anion Gap 3.8 mmol/L (3-11); BUN 30 mg/dL (7-18); CO2 37.2 mmol/L (21.0-32.0); CREATININE 1.12 mg/dL (0.70-1.30); Chloride 96 mmol/L (98-107); Glucose 154 mg/dL (74-106); Magnesium 1.7 mg/dL (1.8-2.4); Potassium 4.6 mmol/L (3.5-5.1); Sodium 137 mmol/L (136-145); TSH (W/Ref FT4) 0.63 uIU/mL (0.36-3.74)
[2020-03-13 07:52] LABS: Diff Comment RBC Morph Reviewed; Macrocytosis 2+
--- NOTE | 2020-03-13 09:15 | PHACLINREV_ITS ---
Pharmacy Admission Review - Admission Clinical Review (Last Updated 03/13/20 @ 01:21 by Saroj Swanson) Cirrhosis with alcoholism (Acute) Right heart failure (Acute) Hypoxia (Acute) Ascites due to alcoholic cirrhosis (Acute) Elevated troponin (Acute) Elevated brain natriuretic peptide (BNP) level (Acute) Pleural effusion, bilateral (Acute) UTI (urinary tract infection) (Acute) No Known Allergies Allergy (Verified 03/12/20 17:28) Height 5 ft 5 in Weight 77.111 kg - Renal Dosing Renal Dosing: BUN 30 mg/dL (7-18) H 03/13/20 06:56 Creatinine 1.12 mg/dL (0.70-1.30) 03/13/20 06:56 Medications needing adjustments: Reviewed (Crcl ~57 mL/min current meds okay) - Anticoagulation Anticoagulation: Hgb 16.5 g/dL (13.5-17.5) 03/13/20 06:56 Hct 51.8 % (40.0-50.0) H 03/13/20 06:56 Plt Count 194 x1000/uL (130-400) 03/13/20 06:56 INR 1.3 (0.9-1.1) H 03/12/20 17:50 Creatinine 1.12 mg/dL (0.70-1.30) 03/13/20 06:56 DVT Prohphylaxis: Reviewed (none currently ordered, paracentesis scheduled for t his morning per surg consult) Therapeutic Anticoagulation: N/A - Opiate Usage Evaluate Pain Scale/Pains Meds: N/A - Relevant Labs Sodium 137 mmol/L (136-145) 03/13/20 06:56 Potassium 4.6 mmol/L (3.5-5.1) 03/13/20 06:56 Chloride 96 mmol/L (98-107) L 03/13/20 06:56 Magnesium 1.7 mg/dL (1.8-2.4) L 03/13/20 06:56 Electrolytes, C-Reactive P, ESR: Reviewed (PO mag and K+ replacement ordered daily) - DM Control DM Control: Glucose 154 mg/dL (74-106) H 03/13/20 06:56 Insulin Dosing: N/A - Heart Failure/FL Heart Failure/FL: Troponin I 0.06 ng/Ml (<0.06) 03/13/20 02:00 NT-Pro-B Natriuret Pep 49174 pg/mL (<300) H 03/12/20 17:50 EF%, TIFFANI's, B-Blockers, Diuretics: Reviewed (furosemide) - BP Control BP Control: Blood Pressure 107/65 Blood Pressure 117/75 If elevated: N/A - Qtc Review If Elevated: Reviewed (QTc 475) - IV to PO Switch IV Medications: N/A - Home Meds Home Med List reviewed: Reviewed Relevent Home Meds Not ordered & why?: cephalexin- was put on for possible UTI on 03/10; urine cultures had no growth @48 per h+p - Current meds Current Medication Order Review: Reviewed - Comments Comments/Follow Ups: Furosemide drip, watch I/O's and weight. Watch mag and K+ levels. Watch for start of DVT/PE prophylaxis pending paracentesis Antibiotic Activity - Pharmacy Antibiotic Review Pharmacy Antibiotic Activity: C/S review (urine culture no growth @24hrs; rapid flu negative)
[2020-03-13] MEDS: Magnesium Gluconate 500 MG TAB PO (11:08)
[2020-03-13] MEDS: Potassium Chloride 20 MEQ TABCR PO (11:08)
[2020-03-13] MEDS: predniSONE 20 MG TAB 40 MG PO (11:09)
[2020-03-13] MEDS: Cyanocobalamin 500 MCG TAB PO (11:09)
[2020-03-13] MEDS: Ipratropium/Albuterol 4 GM 120 PUFF INH IH ×4 (11:10→20:37)
[2020-03-13 11:24] LABS: INR 1.3 (0.9-1.1); Prothrombin Time 13.4 sec (9.3-11.0)
--- NOTE | 2020-03-13 12:11 | PDOC.CMIN ---
- If Service Date Differs Date of service: 03/13/20 Time of Service: 12:11 Care Management Initial Assess REASON FOR HOSPITALIZATION:: Right heart failure PAST MEDICAL HISTORY/PAST SURGICAL HISTORY:: Medical History (Updated 03/13/20 @ 01:54 by Saroj Swanson). Cirrhosis with alcoholism (Acute). Diagnosis per CT findings. COPD (chronic obstructive pulmonary disease) (Chronic). No formal PFTs have been performed. Diagnosis based on emphysematous changes on chest x-ray and CT scan and longstanding smoking history. Surgical History . H/O hernia repair (Chronic). 1964 and 1972 PREVIOUS FUNCTIONAL STATUS/SOCIAL/FAMILY SUPPORTS:: Enoc lives with his Nataly in [place]. They have 2 daughters, one of whom lives close by and is supportive. He is independent at baseline and does not receive any community services. 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 CURRENT FUNCTIONAL STATUS:: CM did not meet with Enoc as [facility] is [facility]; his Covid-19 test is pending. Enoc drinks a couple of beers daily by his account and his last drink was Friday morning. He will be monitored using the CIWA scale. Enoc is currently on a Lasix drip as he has evidence of ascites and fluid retention. His blood pressure has been in the 90's systolic and his oxygen saturation is in the low 90's with an Oxymask. ADVANCE DIRECTIVES:: none on file Has patient been provided with information about the portal?: No Did the patient sign up for the portal?: No CODE STATUS:: Full Code INSURANCE COVERAGE / FINANCIAL ISSUES:: Medicare CURRENT HOME/COMMUNITY SERVICES/EQUIPMENT:: none currently PRIMARY CARE PHYSICIAN:: Hemalatha Khanna POTENTIAL DISCHARGE NEEDS:: Follow up with PCP and discharge plan of care PATIENT/FAMILY EDUCATION NEEDS:: Discharge plan, limitations, Follow up plan, Ask me Three. TRANSPORTATION:: via private vehicle with family PLAN:: Enoc will likely return home with no new services. He will follow up with his PCP and discharge plan of care. CM will continue to support patient, family and discharge planning needs.
--- NOTE | 2020-03-13 16:29 | PGE_ITS ---
Date of Service Date of service: 03/13/20 Time of Service: 16:30 Assessment and Plan Assessment and plan (1) Right heart failure: Status: Acute Assessment and plan: Found to have significant right heart failure by [id number] ultrasound, elevated BN P. He is responded well to the Lasix infusion. He is already put out 2 L. Will continue on low-dose furosemide infusion overnight. He will likely be able to transition to p.o. Lasix soon. Qualifiers: Heart failure chronicity: unspecified Qualified Code(s): I50.810 - Right heart failure, unspecified (2) Cirrhosis with alcoholism: Status: Acute Assessment and plan: New diagnosis of cirrhosis. Active alcohol use. Hep C, hep B, AFP pending. No indication for paracentesis at this time. Does not appear consistent with SBP. Qualifiers: Ascites presence: with ascites Qualified Code(s): K70.31 - Alcoholic cirrhosis of liver with ascites (3) Acute exacerbation of chronic obstructive pulmonary disease: Status: Suspected Assessment and plan: Chronic COPD with dyspnea. He is on p.o. prednisone, inhalers, O2 supplementation. (4) Ascites due to alcoholic cirrhosis: Status: Acute Assessment and plan: Overall symptoms improved with diuresis. No indication for paracentesis at this time. (5) Elevated troponin: Status: Acute Assessment and plan: Troponins less than 0.05, 0.08, 0.07, 0.06. He is had no symptoms of chest pain. Subjective Subjective Interval history since last seen: Patient was admitted overnight because of right heart failure and ascites. He had been having worsening shortness of breath and lower leg edema. Bedside echo showed significant right heart failure, dilated right ventricle. He was placed on a Lasix infusion. He has a heavy alcohol use history and is being monitored with CIWA scoring. The Lasix drip appeared to be causing some low blood pressure so it was cut back from 10-5 to 2.5 to 1 mg/h. His urine output has tapered off and it since been increased back up to 2 mg/h. He is overall feeling quite a bit better since admission. He was evaluated for possible paracentesis but the feeling was his abdomen had become much softer and he was no longer symptomatic with the shortness of breath so the test was postponed. Exam Narrative Exam Narrative: On exam he is sitting up in bed. He appeared fully alert and jeanette pamella. His abdominal exam was notably soft with evidence of some fluid. There was no guarding or rebound. The lower extremities showed 2+ edema. Objective Objective Clinical Data: Abnormal lab results 03/12/20 03/12/20 03/12/20 Range/Units 17:50 17:50 17:50 Hct (40.0-50.0) % MCV 105.7 H (80-95) fL MCH 34.6 H (27.0-33.0) pg MCHC (32.0-36.0) g/dL RDW 16.0 H (11.8-14.1) % Absolute Lymphocytes (1.2-3.4) k/cumm Absolute Monocytes 0.88 H (0.11-0.7) k/cumm PT 13.5 H (9.3-11.0) sec INR 1.3 H (0.9-1.1) ABG pCO2 (34-47) mmHg ABG pO2 (83-108) mmHg ABG HCO3 (22-28) mmol/L ABG Total CO2 (22-29) mmol/L ABG O2 Saturation (94-98) % ABG Base Excess (-3-3) mmol/L Chloride 97 L (98-107) mmol/L Carbon Dioxide 33.7 H (21.0-32.0) mmol/L BUN 35 H (7-18) mg/dL Glucose 109 H (74-106) mg/dL Calcium (8.5-10.1) mg/dL Magnesium (1.8-2.4) mg/dL Total Bilirubin 1.1 H (0.2-1.0) mg/dL Ammonia (11-32) umol/L Troponin I 0.08 H* (<0.06) ng/Ml NT-Pro-B Natriuret Pep (<300) pg/mL Albumin 3.0 L (3.4-5.0) g/dL Urine Protein (Negative) mg/dL Urine Ketones (Negative) mg/dL Urine Urobilinogen (Up TO 0.2) EU/dL Ur Leukocyte Esterase (Negative) Urine WBC (0-5) HPF 03/12/20 03/12/20 03/12/20 Range/Units 17:50 17:55 19:29 Hct (40.0-50.0) % MCV (80-95) fL MCH (27.0-33.0) pg MCHC (32.0-36.0) g/dL RDW (11.8-14.1) % Absolute Lymphocytes (1.2-3.4) k/cumm Absolute Monocytes (0.11-0.7) k/cumm PT (9.3-11.0) sec INR (0.9-1.1) ABG pCO2 67 H* (34-47) mmHg ABG pO2 65 L (83-108) mmHg ABG HCO3 37 H (22-28) mmol/L ABG Total CO2 32 H (22-29) mmol/L ABG O2 Saturation 90 L (94-98) % ABG Base Excess 11.1 H (-3-3) mmol/L Chloride (98-107) mmol/L Carbon Dioxide (21.0-32.0) mmol/L BUN (7-18) mg/dL Glucose (74-106) mg/dL Calcium (8.5-10.1) mg/dL Magnesium (1.8-2.4) mg/dL Total Bilirubin (0.2-1.0) mg/dL Ammonia (11-32) umol/L Troponin I (<0.06) ng/Ml NT-Pro-B Natriuret Pep 55281 H (<300) pg/mL Albumin (3.4-5.0) g/dL Urine Protein 100 H (Negative) mg/dL Urine Ketones Trace H (Negative) mg/dL Urine Urobilinogen 1.0 H (Up TO 0.2) EU/dL Ur Leukocyte Esterase Small H (Negative) Urine WBC 10-20 H (0-5) HPF 03/13/20 03/13/20 03/13/20 Range/Units 06:56 06:56 06:56 Hct 51.8 H (40.0-50.0) % MCV 107.0 H (80-95) fL MCH 34.1 H (27.0-33.0) pg MCHC 31.9 L (32.0-36.0) g/dL RDW 15.9 H (11.8-14.1) % Absolute Lymphocytes 0.33 L (1.2-3.4) k/cumm Absolute Monocytes 0.07 L (0.11-0.7) k/cumm PT (9.3-11.0) sec INR (0.9-1.1) ABG pCO2 (34-47) mmHg ABG pO2 (83-108) mmHg ABG HCO3 (22-28) mmol/L ABG Total CO2 (22-29) mmol/L ABG O2 Saturation (94-98) % ABG Base Excess (-3-3) mmol/L Chloride 96 L (98-107) mmol/L Carbon Dioxide 37.2 H (21.0-32.0) mmol/L BUN 30 H (7-18) mg/dL Glucose 154 H (74-106) mg/dL Calcium 8.0 L (8.5-10.1) mg/dL Magnesium 1.7 L (1.8-2.4) mg/dL Total Bilirubin (0.2-1.0) mg/dL Ammonia 50 H (11-32) umol/L Troponin I (<0.06) ng/Ml NT-Pro-B Natriuret Pep (<300) pg/mL Albumin (3.4-5.0) g/dL Urine Protein (Negative) mg/dL Urine Ketones (Negative) mg/dL Urine Urobilinogen (Up TO 0.2) EU/dL Ur Leukocyte Esterase (Negative) Urine WBC (0-5) HPF 03/13/20 Range/Units 10:08 Hct (40.0-50.0) % MCV (80-95) fL MCH (27.0-33.0) pg MCHC (32.0-36.0) g/dL RDW (11.8-14.1) % Absolute Lymphocytes (1.2-3.4) k/cumm Absolute Monocytes (0.11-0.7) k/cumm PT 13.4 H (9.3-11.0) sec INR 1.3 H (0.9-1.1) ABG pCO2 (34-47) mmHg ABG pO2 (83-108) mmHg ABG HCO3 (22-28) mmol/L ABG Total CO2 (22-29) mmol/L ABG O2 Saturation (94-98) % ABG Base Excess (-3-3) mmol/L Chloride (98-107) mmol/L Carbon Dioxide (21.0-32.0) mmol/L BUN (7-18) mg/dL Glucose (74-106) mg/dL Calcium (8.5-10.1) mg/dL Magnesium (1.8-2.4) mg/dL Total Bilirubin (0.2-1.0) mg/dL Ammonia (11-32) umol/L Troponin I (<0.06) ng/Ml NT-Pro-B Natriuret Pep (<300) pg/mL Albumin (3.4-5.0) g/dL Urine Protein (Negative) mg/dL Urine Ketones (Negative) mg/dL Urine Urobilinogen (Up TO 0.2) EU/dL Ur Leukocyte Esterase (Negative) Urine WBC (0-5) HPF Vital Signs Temperature 36.9 C 03/13/20 14:34 Temperature Source Axillary 03/13/20 14:34 Pulse 95 H 03/13/20 14:34 Pulse Rhythm Regular 03/13/20 08:00 Pulse 88 03/12/20 19:31 Respiratory Rate 18 03/13/20 14:34 Respiratory Effort 03/13/20 08:00 Respiratory Depth Shallow 03/13/20 08:00 Respiratory Pattern Normal 03/13/20 08:00 Blood Pressure 103/61 03/13/20 14:34 Blood Pressure Mean 90 03/12/20 19:30 Blood Pressure Position Sitting 03/12/20 17:23 Pulse Oximetry 91 L 03/13/20 14:34 Oxygen Delivery Method Nasal Cannula 03/13/20 14:34 Oxygen Flow Rate 4 03/13/20 14:34 Pain Level 0 03/13/20 11:24 Intake & Output 03/12/20 03/13/20 03/13/20 23:59 11:59 23:59 Intake Total 546.667 / 546.667 Output Total 505 / 505 1500 / 1500 Balance 41.667 / 41.667 -1500 / -1500 Weight 77.111 kg Intake: IV 306.667 / 306.667 Oral 240 / 240 Output: Urine 280 / 280 1500 / 1500 Urine/Stool Mix 225 / 225 Other: Urine Color Yellow Urine Appearance Clear Clear # Voids 475 Laboratory Results WBC 4.95 k/cumm (4.4-10.8) D 03/13/20 06:56 RBC 4.84 m/cumm (4.50-6.00) 03/13/20 06:56 Hgb 16.5 g/dL (13.5-17.5) 03/13/20 06:56 Hct 51.8 % (40.0-50.0) H 03/13/20 06:56 MCV 107.0 fL (80-95) H 03/13/20 06:56 MCH 34.1 pg (27.0-33.0) H 03/13/20 06:56 MCHC 31.9 g/dL (32.0-36.0) L 03/13/20 06:56 RDW 15.9 % (11.8-14.1) H 03/13/20 06:56 Plt Count 194 x1000/uL (130-400) 03/13/20 06:56 MPV 9.3 fL (8.0-11.0) 03/13/20 06:56 Immature Gran % 0.2 % 03/13/20 06:56 Neutrophils % 91.7 03/13/20 06:56 Lymphocytes % 6.7 03/13/20 06:56 Monocytes % 1.4 03/13/20 06:56 Eosinophils % 0.0 03/13/20 06:56 Basophils % 0.0 03/13/20 06:56 Absolute Neutrophils 4.54 k/cumm (1.2-6.7) 03/13/20 06:56 Absolute Lymphocytes 0.33 k/cumm (1.2-3.4) L 03/13/20 06:56 Absolute Monocytes 0.07 k/cumm (0.11-0.7) L 03/13/20 06:56 Absolute Eosinophils 0.00 k/cumm (0.0-0.7) 03/13/20 06:56 Absolute Basophils 0.00 k/cumm (0.0-0.2) 03/13/20 06:56 Differential Comment Rbc morph reviewed 03/13/20 06:56 RBC Morphology See below 03/13/20 06:56 Polychromasia Present 03/12/20 17:50 Macrocytosis 2+ 03/13/20 06:56 PT 13.4 sec (9.3-11.0) H 03/13/20 10:08 INR 1.3 (0.9-1.1) H 03/13/20 10:08 APTT 25.4 sec (21.0-31.4) 03/12/20 17:50 ABG Sample Site Unknown 03/12/20 19:29 ABG pH 7.35 (7.35-7.45) 03/12/20 19:29 ABG pCO2 67 mmHg (34-47) H* 03/12/20 19:29 ABG pO2 65 mmHg (83-108) L 03/12/20 19:29 ABG HCO3 37 mmol/L (22-28) H 03/12/20 19:29 ABG Total CO2 32 mmol/L (22-29) H 03/12/20 19:29 ABG O2 Saturation 90 % (94-98) L 03/12/20 19:29 ABG Base Excess 11.1 mmol/L (-3-3) H 03/12/20 19:29 Sodium 137 mmol/L (136-145) 03/13/20 06:56 Potassium 4.6 mmol/L (3.5-5.1) 03/13/20 06:56 Chloride 96 mmol/L (98-107) L 03/13/20 06:56 Carbon Dioxide 37.2 mmol/L (21.0-32.0) H 03/13/20 06:56 Anion Gap 3.8 mmol/L (3-11) 03/13/20 06:56 BUN 30 mg/dL (7-18) H 03/13/20 06:56 Creatinine 1.12 mg/dL (0.70-1.30) 03/13/20 06:56 Estimated GFR/1.73 m2 >= 60.00 (mL/min/1.73m2) 03/13/20 06:56 Glucose 154 mg/dL (74-106) H 03/13/20 06:56 Calcium 8.0 mg/dL (8.5-10.1) L 03/13/20 06:56 Magnesium 1.7 mg/dL (1.8-2.4) L 03/13/20 06:56 Total Bilirubin 1.1 mg/dL (0.2-1.0) H 03/12/20 17:50 AST 30 U/L (15-37) 03/12/20 17:50 ALT 44 U/L (16-63) 03/12/20 17:50 Alkaline Phosphatase 95 U/L (46-116) 03/12/20 17:50 Ammonia 50 umol/L (11-32) H 03/13/20 06:56 Troponin I 0.06 ng/Ml (<0.06) 03/13/20 02:00 NT-Pro-B Natriuret Pep 45360 pg/mL (<300) H 03/12/20 17:50 Total Protein 6.4 g/dL (6.4-8.2) 03/12/20 17:50 Albumin 3.0 g/dL (3.4-5.0) L 03/12/20 17:50 Lipase 67 U/L (73-393) 03/12/20 17:50 TSH 0.63 uIU/mL (0.36-3.74) 03/13/20 06:56 Urine Color Yellow (Yellow) 03/12/20 17:55 Urine Clarity Clear (Clear) 03/12/20 17:55 Urine pH 5.5 (5-8) 03/12/20 17:55 Ur Specific [place] 1.025 (1.005-1.025) 03/12/20 17:55 Urine Protein 100 mg/dL (Negative) H 03/12/20 17:55 Urine Ketones Trace mg/dL (Negative) H 03/12/20 17:55 Urine Blood Negative (Negative) 03/12/20 17:55 Urine Nitrite Negative (Negative) 03/12/20 17:55 Urine Bilirubin Negative (Negative) 03/12/20 17:55 Urine Urobilinogen 1.0 EU/dL (Up TO 0.2) H 03/12/20 17:55 Ur Leukocyte Esterase Small (Negative) H 03/12/20 17:55 Urine RBC Negative HPF (0-2) 03/12/20 17:55 Urine WBC 10-20 HPF (0-5) H 03/12/20 17:55 Ur Epithelial Cells Few HPF (Negative) 03/12/20 17:55 Urine Crystals Negative HPF (Negative) 03/12/20 17:55 Urine Bacteria Moderate HPF (Negative) 03/12/20 17:55 Urine Casts 0-2 hyaline LPF (Negative) 03/12/20 17:55 Urine Mucus Heavy (Negative) 03/12/20 17:55 Urine Other Negative (Negative) 04/19/20 17:55 Ur Culture Indicated? Yes 03/12/20 17:55 Urine Glucose Negative mg/dL (Negative) 03/12/20 17:55
[2020-03-13 18:35] LABS: COVID-19 RT-PCR Result Negative (Negative)
--- NOTE | 2020-03-13 20:46 | W.PM.PROGNOT ---
Date of Service Date of service: 03/13/20 Time of Service: 20:47 Assessment and Plan Assessment and plan (1) Cirrhosis with alcoholism: Status: Acute Assessment and plan: pt responded well to diuretic drip. He has minimal ascites on exam today. He is not uncomfortable nad is not having resp compromise from this. Hosp does not require fluid for Dg. No signs of SBP. Will forgo paracentisis at this time. Hep studies and AFP- pd will re-eval at your request thanks you Qualifiers: Ascites presence: with ascites Qualified Code(s): K70.31 - Alcoholic cirrhosis of liver with ascites (2) Ascites due to alcoholic cirrhosis: Status: Acute (3) Elevated brain natriuretic peptide (BNP) level: Status: Acute (4) Pleural effusion, bilateral: Status: Acute Objective Objective Clinical Data: Abnormal lab results 03/13/20 03/13/20 03/13/20 Range/Units 06:56 06:56 06:56 Hct 51.8 H (40.0-50.0) % MCV 107.0 H (80-95) fL MCH 34.1 H (27.0-33.0) pg MCHC 31.9 L (32.0-36.0) g/dL RDW 15.9 H (11.8-14.1) % Absolute Lymphocytes 0.33 L (1.2-3.4) k/cumm Absolute Monocytes 0.07 L (0.11-0.7) k/cumm PT (9.3-11.0) sec INR (0.9-1.1) Chloride 96 L (98-107) mmol/L Carbon Dioxide 37.2 H (21.0-32.0) mmol/L BUN 30 H (7-18) mg/dL Glucose 154 H (74-106) mg/dL Calcium 8.0 L (8.5-10.1) mg/dL Magnesium 1.7 L (1.8-2.4) mg/dL Ammonia 50 H (11-32) umol/L 03/13/20 Range/Units 10:08 Hct (40.0-50.0) % MCV (80-95) fL MCH (27.0-33.0) pg MCHC (32.0-36.0) g/dL RDW (11.8-14.1) % Absolute Lymphocytes (1.2-3.4) k/cumm Absolute Monocytes (0.11-0.7) k/cumm PT 13.4 H (9.3-11.0) sec INR 1.3 H (0.9-1.1) Chloride (98-107) mmol/L Carbon Dioxide (21.0-32.0) mmol/L BUN (7-18) mg/dL Glucose (74-106) mg/dL Calcium (8.5-10.1) mg/dL Magnesium (1.8-2.4) mg/dL Ammonia (11-32) umol/L Vital Signs Temperature 36.9 C 03/13/20 14:34 Temperature Source Axillary 03/13/20 14:34 Pulse 95 H 03/13/20 14:34 Pulse Rhythm Regular 03/13/20 17:00 Pulse 88 03/12/20 19:31 Respiratory Rate 18 03/13/20 14:34 Respiratory Effort 03/13/20 17:00 Respiratory Depth Shallow 03/13/20 17:00 Respiratory Pattern Normal 03/13/20 17:00 Blood Pressure 103/61 03/13/20 14:34 Blood Pressure Mean 90 03/12/20 19:30 Blood Pressure Position Sitting 03/12/20 17:23 Pulse Oximetry 91 L 03/13/20 14:34 Oxygen Delivery Method Nasal Cannula 03/13/20 14:34 Oxygen Flow Rate 4 03/13/20 14:34 Pain Level 0 03/13/20 11:24 Intake & Output 03/12/20 03/13/20 03/13/20 23:59 11:59 23:59 Intake Total 546.667 / 546.667 320 / 640 320 / 640 Output Total 505 / 505 2250 / 2400 150 / 2400 Balance 41.667 / 41.667 -1930 / -1760 170 / -1760 Weight 77.111 kg Intake: IV 306.667 / 306.667 Oral 240 / 240 320 / 640 320 / 640 Output: Urine 280 / 280 2250 / 2400 150 / 2400 Urine/Stool Mix 225 / 225 Other: Urine Color Pale Light Manisha Yellow Urine Appearance Clear Clear Clear # Voids 475 Laboratory Results WBC 4.95 k/cumm (4.4-10.8) D 03/13/20 06:56 RBC 4.84 m/cumm (4.50-6.00) 03/13/20 06:56 Hgb 16.5 g/dL (13.5-17.5) 03/13/20 06:56 Hct 51.8 % (40.0-50.0) H 03/13/20 06:56 MCV 107.0 fL (80-95) H 03/13/20 06:56 MCH 34.1 pg (27.0-33.0) H 03/13/20 06:56 MCHC 31.9 g/dL (32.0-36.0) L 03/13/20 06:56 RDW 15.9 % (11.8-14.1) H 03/13/20 06:56 Plt Count 194 x1000/uL (130-400) 03/13/20 06:56 MPV 9.3 fL (8.0-11.0) 03/13/20 06:56 Immature Gran % 0.2 % 03/13/20 06:56 Neutrophils % 91.7 03/13/20 06:56 Lymphocytes % 6.7 03/13/20 06:56 Monocytes % 1.4 03/13/20 06:56 Eosinophils % 0.0 03/13/20 06:56 Basophils % 0.0 03/13/20 06:56 Absolute Neutrophils 4.54 k/cumm (1.2-6.7) 03/13/20 06:56 Absolute Lymphocytes 0.33 k/cumm (1.2-3.4) L 03/13/20 06:56 Absolute Monocytes 0.07 k/cumm (0.11-0.7) L 03/13/20 06:56 Absolute Eosinophils 0.00 k/cumm (0.0-0.7) 03/13/20 06:56 Absolute Basophils 0.00 k/cumm (0.0-0.2) 03/13/20 06:56 Differential Comment Rbc morph reviewed 03/13/20 06:56 RBC Morphology See below 03/13/20 06:56 Polychromasia Present 03/12/20 17:50 Macrocytosis 2+ 03/13/20 06:56 PT 13.4 sec (9.3-11.0) H 03/13/20 10:08 INR 1.3 (0.9-1.1) H 03/13/20 10:08 APTT 25.4 sec (21.0-31.4) 03/12/20 17:50 ABG Sample Site Unknown 03/12/20 19:29 ABG pH 7.35 (7.35-7.45) 03/12/20 19:29 ABG pCO2 67 mmHg (34-47) H* 03/12/20 19:29 ABG pO2 65 mmHg (83-108) L 03/12/20 19:29 ABG HCO3 37 mmol/L (22-28) H 03/12/20 19:29 ABG Total CO2 32 mmol/L (22-29) H 03/12/20 19:29 ABG O2 Saturation 90 % (94-98) L 03/12/20 19:29 ABG Base Excess 11.1 mmol/L (-3-3) H 03/12/20 19:29 Sodium 137 mmol/L (136-145) 03/13/20 06:56 Potassium 4.6 mmol/L (3.5-5.1) 03/13/20 06:56 Chloride 96 mmol/L (98-107) L 03/13/20 06:56 Carbon Dioxide 37.2 mmol/L (21.0-32.0) H 03/13/20 06:56 Anion Gap 3.8 mmol/L (3-11) 03/13/20 06:56 BUN 30 mg/dL (7-18) H 03/13/20 06:56 Creatinine 1.12 mg/dL (0.70-1.30) 03/13/20 06:56 Estimated GFR/1.73 m2 >= 60.00 (mL/min/1.73m2) 03/13/20 06:56 Glucose 154 mg/dL (74-106) H 03/13/20 06:56 Calcium 8.0 mg/dL (8.5-10.1) L 03/13/20 06:56 Magnesium 1.7 mg/dL (1.8-2.4) L 03/13/20 06:56 Total Bilirubin 1.1 mg/dL (0.2-1.0) H 03/12/20 17:50 AST 30 U/L (15-37) 03/12/20 17:50 ALT 44 U/L (16-63) 03/12/20 17:50 Alkaline Phosphatase 95 U/L (46-116) 03/12/20 17:50 Ammonia 50 umol/L (11-32) H 03/13/20 06:56 Troponin I 0.06 ng/Ml (<0.06) 03/13/20 02:00 NT-Pro-B Natriuret Pep 67082 pg/mL (<300) H 03/12/20 17:50 Total Protein 6.4 g/dL (6.4-8.2) 03/12/20 17:50 Albumin 3.0 g/dL (3.4-5.0) L 03/12/20 17:50 Lipase 67 U/L (73-393) 03/12/20 17:50 TSH 0.63 uIU/mL (0.36-3.74) 03/13/20 06:56 Urine Color Yellow (Yellow) 03/12/20 17:55 Urine Clarity Clear (Clear) 03/12/20 17:55 Urine pH 5.5 (5-8) 03/12/20 17:55 Ur Specific [place] 1.025 (1.005-1.025) 03/12/20 17:55 Urine Protein 100 mg/dL (Negative) H 03/12/20 17:55 Urine Ketones Trace mg/dL (Negative) H 03/12/20 17:55 Urine Blood Negative (Negative) 03/12/20 17:55 Urine Nitrite Negative (Negative) 03/12/20 17:55 Urine Bilirubin Negative (Negative) 03/12/20 17:55 Urine Urobilinogen 1.0 EU/dL (Up TO 0.2) H 03/12/20 17:55 Ur Leukocyte Esterase Small (Negative) H 03/12/20 17:55 Urine RBC Negative HPF (0-2) 03/12/20 17:55 Urine WBC 10-20 HPF (0-5) H 03/12/20 17:55 Ur Epithelial Cells Few HPF (Negative) 03/12/20 17:55 Urine Crystals Negative HPF (Negative) 03/12/20 17:55 Urine Bacteria Moderate HPF (Negative) 03/12/20 17:55 Urine Casts 0-2 hyaline LPF (Negative) 03/12/20 17:55 Urine Mucus Heavy (Negative) 03/12/20 17:55 Urine Other Negative (Negative) 03/12/20 17:55 Ur Culture Indicated? Yes 03/12/20 17:55 Urine Glucose Negative mg/dL (Negative) 03/12/20 17:55 Coronavirus (PCR) Negative (Negative) 03/12/20 20:45
[2020-03-13] MEDS: Normal Saline Flush 10 ML SYR IVP (21:57)
--- NOTE | 2020-03-13 23:52 | NUR.NOTE ---
It has just been brought to my attention that the lasix gtt from my previous shift on 03/13 at 0200 was not documented on in the [facility]. I am writing this note to provide information on this drip for the pt. I started the lasix gtt at 10mg/hr at 0200. The patient put out copious amounts of urine in the first hour so at 0330 I titrated the gtt to 5mg/hr. The gtt remained on at 5mg/hr until the end of my shift at 0700, pt maintained good BPs and urine output slowed down. Nursing Note:
[2020-03-14] VITALS (11 sets, daily range): BP systolic 104–116; BP diastolic 63–75; PULSE 63–102; RESP 16–20; TEMP 36.6–37.3; O2SAT 90–97
[2020-03-14 07:22] LABS: Abs Immature Grans 0.03 k/cumm (0.0-0.09); Absolute Lymphocyte Count 0.98 k/cumm (1.2-3.4); Absolute Neutrophil Count 11.11 k/cumm (1.2-6.7); HCT 48.6 % (40.0-50.0); HGB 15.6 g/dL (13.5-17.5); Immature Grans % 0.2 %; Lymphocytes % 7.4; Mean Corp. HGB Concentration 32.1 g/dL (32.0-36.0); Mean Corpuscular Hemoglobin 34.7 pg (27.0-33.0); Mean Platelet Volume 9.5 fL (8.0-11.0); Monocytes % 8.3; Neutrophils % 84.1; Platelet Count 172 x1000/uL (130-400); RBC Distribution Width 15.9 % (11.8-14.1); White Blood Cell Count 13.21 k/cumm (4.4-10.8)
[2020-03-14 07:50] LABS: ALT 32 U/L (16-63); AST 14 U/L (15-37); Albumin 2.7 g/dL (3.4-5.0); Alkaline Phosphatase 79 U/L (46-116); Anion Gap -1.9 mmol/L (3-11); BUN 32 mg/dL (7-18); Bilirubin, Total 0.6 mg/dL (0.2-1.0); CO2 40.9 mmol/L (21.0-32.0); CREATININE 1.09 mg/dL (0.70-1.30); Calcium 8.1 mg/dL (8.5-10.1); Chloride 98 mmol/L (98-107); Glucose 107 mg/dL (74-106); Potassium 4.6 mmol/L (3.5-5.1); Sodium 137 mmol/L (136-145); Total Protein 5.9 g/dL (6.4-8.2)
[2020-03-14] MEDS: Ipratropium/Albuterol 4 GM 120 PUFF INH IH ×4 (08:23→20:27)
[2020-03-14] MEDS: predniSONE 20 MG TAB 40 MG PO (08:49)
[2020-03-14] MEDS: Magnesium Gluconate 500 MG TAB PO (08:49)
[2020-03-14] MEDS: Cyanocobalamin 500 MCG TAB PO (08:49)
[2020-03-14] MEDS: Potassium Chloride 20 MEQ TABCR PO (08:49)
[2020-03-14 10:37] LABS: Hepatitis C Ab w Rflx HCV PCR Negative (Negative)
--- NOTE | 2020-03-14 10:52 | PDOC.CMPRO ---
- If Service Date Differs Date of service: 03/14/20 Time of Service: 10:52 Care Management Progress Note S/O:Sindy was sitting up in bed when CM met with him. He was pleasant and engaged readily in conversation. Sindy stated that he is feeling much better than when he was admitted. He stated that the swelling in his abdomen and legs came on rather suddenly and that he has never had this problem before. Sindy shared that he hopes to be able to go home today, but understands it will likely be another day or 2. Sindy also talked about his family and his life at home. A: Enoc is a 65 year old man admitted on 03/12/20 with hypoxia and ascites P: nEoc will likely return home with no new services. He will follow up with his PCP and discharge plan of care. CM will continue to support patient, family and discharge planning needs.
[2020-03-14] MEDS: Albuterol HFA 8 GM 60 PUFF INH IH ×3 (11:17→20:28)
[2020-03-14 12:51] LABS: Hep B Core Antibody Negative (Negative)
--- NOTE | 2020-03-14 13:30 | DI.US_ITS ---
APPROVED REPORT EXAM: Comprehensive 2D, Doppler, and color-flow Echocardiogram Patient Location: In-Patient Room/Bed: 231A Server Support Technician: Fanta Marshall RDCS (AE) Indications: CHF, ? Pulmonary HTN Other Information Study Quality: Good Conclusion Left Ventricle : The left ventricle is normal size. The overall left ventricular systolic function ap pears normal. There is normal left ventricular wall thickness. LVEF is 60%. The left ventricular fregoso tolic function is normal. Right Ventricle : Right ventricle is severely dilated. Right ventricle is mildly hypokinetic. The est imated RVSP is 55 mmHg. Right ventricle is mildly hypertrophied. Atria : The left atrium size is normal. Right atrium is severely dilated. The interatrial septum is i ntact with no evidence for an atrial septal defect. Aortic Valve : The Aortic valve is sclerotic. Aortic valve is trileaflet. There is no aortic valvular stenosis. No aortic regurgitation is present. Mitral Valve : There is mitral annular calcification. No evidence of mitral valve stenosis. Mild mitr al regurgitation. Tricuspid Valve : The tricuspid valve is normal in structure. There is no tricuspid valve stenosis. M oderate tricuspid regurgitation. Pulmonic Valve : The pulmonary valve is normal in structure. Great Vessels : The IVC is dilated and collapses <50% with inspiration. There is no prior echocardiogram available for comparison. Wall motion Left Ventricle The left ventricle is normal size. The overall left ventricular systolic function appears normal. The re is normal left ventricular wall thickness. Paradoxical septal motion consistent with right ventric ular volume overload. The left ventricular diastolic function is normal. There is no ventricular sept al defect visualized. LVEF is 60%. Right Ventricle Right ventricle is severely dilated. Right ventricle is mildly hypokinetic. The estimated RVSP is 55 mmHg. Right ventricle is mildly hypertrophied. Atria The left atrium size is normal. Right atrium is severely dilated. The interatrial septum is intact wi th no evidence for an atrial septal defect. Aortic Valve The Aortic valve is sclerotic. Aortic valve is trileaflet. There is no aortic valvular stenosis. No a ortic regurgitation is present. Mitral Valve There is mitral annular calcification. No evidence of mitral valve stenosis. Mild mitral regurgitatio n. Tricuspid Valve The tricuspid valve is normal in structure. There is no tricuspid valve stenosis. Moderate tricuspid regurgitation. Pulmonic Valve The pulmonary valve is normal in structure. There is no pulmonic valvular stenosis. Trace pulmonic re gurgitation. Great Vessels The aortic root is normal in size. Aortic arch is not well visualized. Ascending aorta is not well vi sualized. The IVC is dilated and collapses <50% with inspiration. Pericardium There is no pericardial effusion. 2D Dimensions IVSD d PLAX 0.74 cm M: 0.6-1.2 LV Vol A2C d MOD 114.0 mL LVPW d PLAX 0.86 cm M: 0.6 - 1.2 LV Vol A4C d MOD 90.4 mL LVID d PLAX 4.79 cm M: 4.2 - 5.8 LA vol/ BSA A2C s A-L 24.1 mL/m2 LVDs 3.55 cm M: 2.5 - 4.0 LA vol/ BSA A4C s A-L 16.8 mL/m2 Ao Root d 2.69 cm M: 3.1 - 3.7 LA Vol/ BSA Biplane s A-L 20.3 mL/m2 RA Area A4C 29.21 cm2 LA Area A4C s MOD 13.78 cm2 RA Vol/ BSA A4C s A-L 67.4 mL/m2 LA Area A2C s MOD 16.73 cm2 LV EF Teichholz 50.0 % LV EF A4C MOD 59.8 % LVEF (Fernandes's) 62.15 % M: 52 - 72 LV EF A2C MOD 60.1 % LV Volume 87.24 mL M: 62 - 150 LV EF Biplane MOD 62.1 % LV Volume Index 48.73 mL/m2 M: 34 - 74 IVC Diam exp d SLAX 2.43 cm LV Vol Biplane MOD 112.0 mL FS 25.35 % M-Mode TAPSE 1.39 cm (M/F) >1.7 LV Diastology MV E' medial 0.062 (>0.07 m/s) E/A Ratio 2.1 LV E/e MED 13.35 (<14) MV E Vmax 0.83 (0.4-1.3 m/s) MV E' lateral 0.143 (>0.1 m/s) MV A Vmax 0.40 (0.4-1.3 m/s) LV E/e LAT 5.80 (<14) MV E/A Ratio 1.87 MV E/E' medial 13.37 MV E/E' lateral 5.81 Aortic Valve LVOT Area 3.23 cm2 AoV Area Vmax 2.52 cm2 LVOT Vmax 1.01 m/s AoV Area/ BSA (Vmax) 1.41 cm2/m2 LVOT Mean Garth. 0.65 m/s IRWIN Mean Garth. 2.29 cm2 LVOT Peak Grad 4.1 mmHg IRWIN Mean Garth. Index 1.28 cm2/m2 LVOT Mean Grad 2.0 mmHg LVOT VTI 0.179 m LVOT Diam s 2.00 cm (M/F) 1.5-2.5 AoV Vmax 1.30 (0.5-1.3 m/s) Velocity Ratio 0.77 AoV Mean Garth. 0.92 m/s AoV Peak Grad 6.8 mmHg LVOT SV 57.84 mL AoV Mean Grad 3.7 (<5 mmHg) AoV VTI 0.213 (0.18-0.25 m) AoV Area VTI 2.71 (2.5-4.5 cm2) AoV Area/ BSA (VTI) 1.51 cm/m2 Mitral Valve MV DT 166 (160-240 msec) MV PHT 48 msec MV Area PHT 4.58 cm2 Pulmonary Valve PV Vmax 0.86 (0.5-1.5 m/s) RVOT Peak Gr. 1.46 mmHg PV Peak Grad 2.9 mmHg RVOT Mean Gr. 0.60 mmHg PV Mean Grad 1.6 mmHg RVOT VTI 0.088 m PV VTI 0.138 m RVOT Vmax 0.60 m/s Tricuspid Valve TR Peak Grad 40.7 mmHg TR Vmax 3.19 m/s RA Pressure 15.00 mmHg RVSP (TR) 55.7 mmHg
--- NOTE | 2020-03-14 14:24 | W.PM.PROGNOT ---
Date of Service Date of service: 03/14/20 Time of Service: 12:00 Assessment and Plan Assessment and plan (1) Right heart failure: Status: Acute Assessment and plan: Cause has not been identified but suspicion for pulmonary hypertension from either COPD and/or untreated sleep apnea. Echocardiogram ordered to assess pulmonary artery pressure. Transition from furosemide infusion to oral bolus dosing. Monitor diuretic response. Qualifiers: Heart failure chronicity: unspecified Qualified Code(s): I50.810 - Right heart failure, unspecified (2) Cirrhosis with alcoholism: Status: Acute Assessment and plan: Advised to avoid all alcohol. Has not had any obvious encephalopathy. No significant alcohol withdrawal symptoms at this point. No known varices but has not had full evaluation. Ascites mild to moderate and hopefully will improve with diuretics. Hepatitis C-, hepatitis B serology still pending. Qualifiers: Ascites presence: with ascites Qualified Code(s): K70.31 - Alcoholic cirrhosis of liver with ascites (3) Acute exacerbation of chronic obstructive pulmonary disease: Status: Suspected Assessment and plan: Moderately wheezy but limited subjective symptoms. I am adding Symbicort to his scheduled inhaled ipratropium albuterol and monitor response. He is still on oral prednisone. Consider starting taper within 24 to 48 hours. (4) Ascites due to alcoholic cirrhosis: Status: Acute Assessment and plan: Asymptomatic from this. Follow with transition from IV to oral furosemide. No indication for paracentesis. (5) Fatigue: Status: Acute Assessment and plan: Might be a manifestation of untreated sleep apnea? Outpatient work-up recommended. Qualifiers: Fatigue type: unspecified Qualified Code(s): R53.83 - Other fatigue Subjective Subjective Interval history since last seen: Reports feeling substantially better overall compared to when he came in. Less edema. Denies feeling short of breath. Denies nausea or abdominal pain. Denies feeling confused although endorses chronically feeling a bit fatigued. No chest or abdominal pains. No discomfort with Oquendo catheter. Negative fluid balance, weight is down almost 5 kg from admission. Telemetry has shown sinus rhythm with a bundle branch pattern. Exam Narrative Exam Narrative: Looks well, talks in full sentences. Has not been febrile. Blood pressure 1 teens over 60s pulse in the 60s SaO2 on 4 L 92%. Neck veins difficult to see because of skin folds. Lungs fair aeration with expiratory wheezing through all lung de leon. Regular heart rhythm no S3 or S4. Abdomen without tenderness. Bowel sounds active. Abdomen is protuberant, difficult to determine if there is a distinct fluid wave. No guarding or rebound. Cannot feel liver edge. Extremities with compression dressings on, 1-2+ edema to his feet. 1+ pulses in both feet. No tremor. Moves all extremities spontaneously. Sits up unassisted. Objective Objective Clinical Data: Abnormal lab results 03/14/20 03/14/20 Range/Units 06:45 06:45 WBC 13.21 H D (4.4-10.8) k/cumm MCV 108.0 H (80-95) fL MCH 34.7 H (27.0-33.0) pg RDW 15.9 H (11.8-14.1) % Absolute Neutrophils 11.11 H (1.2-6.7) k/cumm Absolute Lymphocytes 0.98 L (1.2-3.4) k/cumm Absolute Monocytes 1.10 H (0.11-0.7) k/cumm Carbon Dioxide 40.9 H (21.0-32.0) mmol/L Anion Gap -1.9 L (3-11) mmol/L BUN 32 H (7-18) mg/dL Glucose 107 H (74-106) mg/dL Calcium 8.1 L (8.5-10.1) mg/dL AST 14 L (15-37) U/L Total Protein 5.9 L (6.4-8.2) g/dL Albumin 2.7 L (3.4-5.0) g/dL Vital Signs Temperature 36.6 C 03/14/20 12:00 Temperature Source Temporal Artery Scan 03/14/20 12:00 Pulse 63 03/14/20 12:00 Pulse Rhythm Regular 03/14/20 03:14 Pulse 88 03/12/20 19:31 Respiratory Rate 20 03/14/20 12:00 Respiratory Effort 03/14/20 09:44 Respiratory Depth Normal 03/14/20 09:44 Respiratory Pattern Normal 03/14/20 09:44 Blood Pressure 112/63 03/14/20 12:00 Blood Pressure Mean 90 03/12/20 19:30 Blood Pressure Position Sitting 03/12/20 17:23 Pulse Oximetry 92 L 03/14/20 12:00 Oxygen Delivery Method Nasal Cannula 03/14/20 12:00 Oxygen Flow Rate 4 03/14/20 12:00 Pain Level 0 03/13/20 19:35 Intake & Output 03/13/20 03/14/20 03/14/20 23:59 11:59 23:59 Intake Total 430 / 750 981.125 / 1221.125 240 / 1221.125 Output Total 330 / 2580 1100 / 1100 Balance 100 / -1830 -118.875 / 121.125 240 / 121.125 Weight 72.5 kg Intake: IV 21.125 / 21.125 Oral 420 / 740 960 / 1200 240 / 1200 Output: Urine 330 / 2580 1100 / 1100 Other: Urine Color Yellow Yellow Urine Appearance Clear Clots Stool Size Moderate Moderate Stool Characteristics Soft Soft Formed Formed Brown Laboratory Results WBC 13.21 k/cumm (4.4-10.8) H D 03/14/20 06:45 RBC 4.50 m/cumm (4.50-6.00) 03/14/20 06:45 Hgb 15.6 g/dL (13.5-17.5) 03/14/20 06:45 Hct 48.6 % (40.0-50.0) 03/14/20 06:45 MCV 108.0 fL (80-95) H 03/14/20 06:45 MCH 34.7 pg (27.0-33.0) H 03/14/20 06:45 MCHC 32.1 g/dL (32.0-36.0) 03/14/20 06:45 RDW 15.9 % (11.8-14.1) H 03/14/20 06:45 Plt Count 172 x1000/uL (130-400) 03/14/20 06:45 MPV 9.5 fL (8.0-11.0) 03/14/20 06:45 Immature Gran % 0.2 % 03/14/20 06:45 Neutrophils % 84.1 03/14/20 06:45 Lymphocytes % 7.4 03/14/20 06:45 Monocytes % 8.3 03/14/20 06:45 Eosinophils % 0.0 03/14/20 06:45 Basophils % 0.0 03/14/20 06:45 Absolute Neutrophils 11.11 k/cumm (1.2-6.7) H 03/14/20 06:45 Absolute Lymphocytes 0.98 k/cumm (1.2-3.4) L 03/14/20 06:45 Absolute Monocytes 1.10 k/cumm (0.11-0.7) H 03/14/20 06:45 Absolute Eosinophils 0.00 k/cumm (0.0-0.7) 03/14/20 06:45 Absolute Basophils 0.00 k/cumm (0.0-0.2) 03/14/20 06:45 Differential Comment Rbc morph reviewed 03/13/20 06:56 RBC Morphology See below 03/13/20 06:56 Polychromasia Present 03/12/20 17:50 Macrocytosis 2+ 03/13/20 06:56 PT 13.4 sec (9.3-11.0) H 03/13/20 10:08 INR 1.3 (0.9-1.1) H 03/13/20 10:08 APTT 25.4 sec (21.0-31.4) 03/12/20 17:50 ABG Sample Site Unknown 03/12/20 19:29 ABG pH 7.35 (7.35-7.45) 03/12/20 19:29 ABG pCO2 67 mmHg (34-47) H* 03/12/20 19:29 ABG pO2 65 mmHg (83-108) L 03/12/20 19:29 ABG HCO3 37 mmol/L (22-28) H 03/12/20 19:29 ABG Total CO2 32 mmol/L (22-29) H 03/12/20 19:29 ABG O2 Saturation 90 % (94-98) L 03/12/20 19:29 ABG Base Excess 11.1 mmol/L (-3-3) H 03/12/20 19:29 Sodium 137 mmol/L (136-145) 03/14/20 06:45 Potassium 4.6 mmol/L (3.5-5.1) 03/14/20 06:45 Chloride 98 mmol/L (98-107) 03/14/20 06:45 Carbon Dioxide 40.9 mmol/L (21.0-32.0) H 03/14/20 06:45 Anion Gap -1.9 mmol/L (3-11) L 03/14/20 06:45 BUN 32 mg/dL (7-18) H 03/14/20 06:45 Creatinine 1.09 mg/dL (0.70-1.30) 03/14/20 06:45 Estimated GFR/1.73 m2 >= 60.00 (mL/min/1.73m2) 03/14/20 06:45 Glucose 107 mg/dL (74-106) H 03/14/20 06:45 Calcium 8.1 mg/dL (8.5-10.1) L 03/14/20 06:45 Magnesium 1.7 mg/dL (1.8-2.4) L 03/13/20 06:56 Total Bilirubin 0.6 mg/dL (0.2-1.0) 03/14/20 06:45 AST 14 U/L (15-37) L 03/14/20 06:45 ALT 32 U/L (16-63) 03/14/20 06:45 Alkaline Phosphatase 79 U/L (46-116) 03/14/20 06:45 Ammonia 50 umol/L (11-32) H 03/13/20 06:56 Troponin I 0.06 ng/Ml (<0.06) 03/13/20 02:00 NT-Pro-B Natriuret Pep 62793 pg/mL (<300) H 03/12/20 17:50 Total Protein 5.9 g/dL (6.4-8.2) L 03/14/20 06:45 Albumin 2.7 g/dL (3.4-5.0) L 03/14/20 06:45 Lipase 67 U/L (73-393) 03/12/20 17:50 TSH 0.63 uIU/mL (0.36-3.74) 03/13/20 06:56 Urine Color Yellow (Yellow) 03/12/20 17:55 Urine Clarity Clear (Clear) 03/12/20 17:55 Urine pH 5.5 (5-8) 03/12/20 17:55 Ur Specific [place] 1.025 (1.005-1.025) 03/12/20 17:55 Urine Protein 100 mg/dL (Negative) H 03/12/20 17:55 Urine Ketones Trace mg/dL (Negative) H 04/19/20 17:55 Urine Blood Negative (Negative) 03/12/20 17:55 Urine Nitrite Negative (Negative) 03/12/20 17:55 Urine Bilirubin Negative (Negative) 03/12/20 17:55 Urine Urobilinogen 1.0 EU/dL (Up TO 0.2) H 03/12/20 17:55 Ur Leukocyte Esterase Small (Negative) H 03/12/20 17:55 Urine RBC Negative HPF (0-2) 03/12/20 17:55 Urine WBC 10-20 HPF (0-5) H 03/12/20 17:55 Ur Epithelial Cells Few HPF (Negative) 03/12/20 17:55 Urine Crystals Negative HPF (Negative) 03/12/20 17:55 Urine Bacteria Moderate HPF (Negative) 03/12/20 17:55 Urine Casts 0-2 hyaline LPF (Negative) 03/12/20 17:55 Urine Mucus Heavy (Negative) 03/12/20 17:55 Urine Other Negative (Negative) 03/12/20 17:55 Ur Culture Indicated? Yes 03/12/20 17:55 Urine Glucose Negative mg/dL (Negative) 03/12/20 17:55 Coronavirus (PCR) Negative (Negative) 03/12/20 20:45 Hepatitis C Antibody Negative (Negative) 03/12/20 17:50
--- NOTE | 2020-03-14 14:29 | W.NUTCONSULT ---
Date of service: 03/14/20 Time of Service: 14:29 Nutritional Consult ASSESSMENT: 65 year old male admitted with right heart failure. PMH: COPD, Liver cirrohosis, ascites. Following Low Salt Diet with adequate intake (75-100%). BMI wnl for age. Meds include prednisone, lasix, magnesium. Elevated blood sugars expected as on steriods. Recommend adding MVI, thiamine and folic acid in view of long history of ETOH abuse. Not at risk for nutritional decline at this time. Time Spent in Nutritional Counseling and Treatment: 10 min spent face to face
[2020-03-14] MEDS: Normal Saline Flush 10 ML SYR IVP (15:10)
[2020-03-14] MEDS: Furosemide 40 MG TAB PO (15:10)
[2020-03-14] MEDS: Heparin 5,000 UNITS/ML VIAL 5000 UNITS SC (17:57)
[2020-03-14] MEDS: Budesonide/Formoterol 160/4.5 6 GM 60 PUFF INH IH (20:03)
[2020-03-14] MEDS: Pantoprazole 40 MG VIAL IVP (22:16)
[2020-03-15] VITALS (8 sets, daily range): BP systolic 116–131; BP diastolic 69–80; PULSE 80–90; RESP 16–21; TEMP 36.6–37.3; O2SAT 91–97
[2020-03-15] MEDS: Heparin 5,000 UNITS/ML VIAL 5000 UNITS SC ×2 (05:32→18:30)
[2020-03-15] MEDS: Ipratropium/Albuterol 4 GM 120 PUFF INH IH ×4 (08:12→20:39)
[2020-03-15] MEDS: Budesonide/Formoterol 160/4.5 6 GM 60 PUFF INH IH ×2 (08:12→20:38)
[2020-03-15] MEDS: Furosemide 40 MG TAB PO ×2 (08:42→15:18)
[2020-03-15] MEDS: Cyanocobalamin 500 MCG TAB PO (08:42)
[2020-03-15] MEDS: Potassium Chloride 20 MEQ TABCR PO (08:42)
[2020-03-15] MEDS: predniSONE 20 MG TAB 40 MG PO (08:42)
[2020-03-15] MEDS: Magnesium Gluconate 500 MG TAB PO (08:51)
[2020-03-15 10:13] LABS: AFP Tumor Marker <2.5 ng/mL (<8.1)
--- NOTE | 2020-03-15 10:51 | PGE_ITS ---
Date of Service Date of service: 03/15/20 Time of Service: 10:52 Assessment and Plan Assessment and plan (1) Right heart failure: Status: Acute Assessment and plan: Echocardiogram demonstrates elevated pulmonary artery pressure. tolerating transition from furosemide infusion to oral bolus dosing. Continues to diurese. Monitor diuretic response. remove franco catheter Qualifiers: Heart failure chronicity: unspecified Qualified Code(s): I50.810 - Right heart failure, unspecified (2) Cirrhosis with alcoholism: Status: Acute Assessment and plan: Advised to avoid all alcohol. Has not had any obvious encephalopathy. No significant alcohol withdrawal symptoms at this point. No known varices but has not had full evaluation. Ascites mild to mod erate and hopefully will improve with diuretics. Hepatitis C-, hepatitis B serology still pending. Qualifiers: Ascites presence: with ascites Qualified Code(s): K70.31 - Alcoholic cirrhosis of liver with ascites (3) Acute exacerbation of chronic obstructive pulmonary disease: Status: Suspected Assessment and plan: continue respiratory inhalers, steroid burst, weaning oxygen as able. will likely require oxygen d/t pulmonary hypertension. will need outpatient PFT to be arranged through pcp. symptoms improved. smoking cessation discussed. (4) Ascites due to alcoholic cirrhosis: Status: Acute Assessment and plan: Asymptomatic from this. Follow with transition from IV to oral furosemide. No indication for paracentesis. (5) Discharge planning issues: Status: Acute Assessment and plan: anticipate discharge to home with no new services, will likely require oxygen. case management following. Subjective Subjective Patient reports: no new complaints, feels better and tolerating a regular diet Exam Const General: cooperative, comfortable, no acute distress and well developed Nutritional Appearance: average body habitus Orientation: alert, awake and oriented x3 HENSC Head: normal to inspection Mouth: oral mucosae normal Resp Effort & Inspection: normal respiratory effort Auscultation: diminished lung sounds bilaterally in the lower lung de leon Cardio Rate: regular rate Rhythm: regular rhythm GI Inspection: distended Palpation: ascites Auscultation: normal bowel sounds General: other (franco draining medium, brownish urine with blood streaks and sediment) Neuro General: patient alert, patient awake and patient oriented x3 Extrem General: normal to inspection, full ROM and edema Laterality: bilateral Psych Appearance: grossly normal Affect: normal affect Attitude: cooperative Thought Process: normal Thought Content: normal Objective Objective Clinical Data: Vital Signs Temperature 37.1 C 03/15/20 07:55 Temperature Source Temporal Artery Scan 03/15/20 07:55 Pulse 82 03/15/20 07:55 Pulse Rhythm Regular 03/15/20 01:20 Pulse 88 03/12/20 19:31 Respiratory Rate 21 03/15/20 04:14 Respiratory Effort 03/15/20 01:20 Respiratory Depth Normal 03/15/20 01:20 Respiratory Pattern Normal 03/15/20 01:20 Blood Pressure 126/76 03/15/20 07:55 Blood Pressure Mean 90 03/12/20 19:30 Blood Pressure Position Sitting 03/12/20 17:23 Pulse Oximetry 94 L 03/15/20 08:36 Oxygen Delivery Method Nasal Cannula 03/15/20 08:36 Oxygen Flow Rate 2 03/15/20 08:36 Pain Level 0 03/14/20 15:15 Intake & Output 03/14/20 03/14/20 03/15/20 11:59 23:59 11:59 Intake Total 981.125 / 1498.958 517.833 / 1498.958 Output Total 1100 / 2475 1375 / 2475 1300 / 1300 Balance -118.875 / -976.042 -857.167 / -976.042 -1300 / -1300 Weight 72.5 kg 71.9 kg Intake: IV 21.125 / 58.958 37.833 / 58.958 Oral 960 / 1440 480 / 1440 Output: Urine 1100 / 2475 1375 / 2475 1300 / 1300 Other: Urine Color Yellow Yellow Yellow Urine Appearance Clots Clear Clear Stool Size Moderate Smear Small Stool Characteristics Soft Soft Soft Formed Brown Laboratory Results WBC 13.21 k/cumm (4.4-10.8) H D 03/14/20 06:45 RBC 4.50 m/cumm (4.50-6.00) 03/14/20 06:45 Hgb 15.6 g/dL (13.5-17.5) 03/14/20 06:45 Hct 48.6 % (40.0-50.0) 03/14/20 06:45 MCV 108.0 fL (80-95) H 03/14/20 06:45 MCH 34.7 pg (27.0-33.0) H 03/14/20 06:45 MCHC 32.1 g/dL (32.0-36.0) 03/14/20 06:45 RDW 15.9 % (11.8-14.1) H 03/14/20 06:45 Plt Count 172 x1000/uL (130-400) 03/14/20 06:45 MPV 9.5 fL (8.0-11.0) 03/14/20 06:45 Immature Gran % 0.2 % 03/14/20 06:45 Neutrophils % 84.1 03/14/20 06:45 Lymphocytes % 7.4 03/14/20 06:45 Monocytes % 8.3 03/14/20 06:45 Eosinophils % 0.0 03/14/20 06:45 Basophils % 0.0 03/14/20 06:45 Absolute Neutrophils 11.11 k/cumm (1.2-6.7) H 03/14/20 06:45 Absolute Lymphocytes 0.98 k/cumm (1.2-3.4) L 03/14/20 06:45 Absolute Monocytes 1.10 k/cumm (0.11-0.7) H 03/14/20 06:45 Absolute Eosinophils 0.00 k/cumm (0.0-0.7) 03/14/20 06:45 Absolute Basophils 0.00 k/cumm (0.0-0.2) 03/14/20 06:45 Differential Comment Rbc morph reviewed 03/13/20 06:56 RBC Morphology See below 03/13/20 06:56 Polychromasia Present 03/12/20 17:50 Macrocytosis 2+ 03/13/20 06:56 PT 13.4 sec (9.3-11.0) H 03/13/20 10:08 INR 1.3 (0.9-1.1) H 03/13/20 10:08 APTT 25.4 sec (21.0-31.4) 03/12/20 17:50 ABG Sample Site Unknown 03/12/20 19:29 ABG pH 7.35 (7.35-7.45) 03/12/20 19:29 ABG pCO2 67 mmHg (34-47) H* 03/12/20 19:29 ABG pO2 65 mmHg (83-108) L 03/12/20 19:29 ABG HCO3 37 mmol/L (22-28) H 03/12/20 19:29 ABG Total CO2 32 mmol/L (22-29) H 03/12/20 19:29 ABG O2 Saturation 90 % (94-98) L 03/12/20 19:29 ABG Base Excess 11.1 mmol/L (-3-3) H 03/12/20 19:29 Sodium 137 mmol/L (136-145) 03/14/20 06:45 Potassium 4.6 mmol/L (3.5-5.1) 03/14/20 06:45 Chloride 98 mmol/L (98-107) 03/14/20 06:45 Carbon Dioxide 40.9 mmol/L (21.0-32.0) H 03/14/20 06:45 Anion Gap -1.9 mmol/L (3-11) L 03/14/20 06:45 BUN 32 mg/dL (7-18) H 03/14/20 06:45 Creatinine 1.09 mg/dL (0.70-1.30) 03/14/20 06:45 Estimated GFR/1.73 m2 >= 60.00 (mL/min/1.73m2) 03/14/20 06:45 Glucose 107 mg/dL (74-106) H 03/14/20 06:45 Calcium 8.1 mg/dL (8.5-10.1) L 03/14/20 06:45 Magnesium 1.7 mg/dL (1.8-2.4) L 03/13/20 06:56 Total Bilirubin 0.6 mg/dL (0.2-1.0) 03/14/20 06:45 AST 14 U/L (15-37) L 03/14/20 06:45 ALT 32 U/L (16-63) 03/14/20 06:45 Alkaline Phosphatase 79 U/L (46-116) 03/14/20 06:45 Ammonia 50 umol/L (11-32) H 03/13/20 06:56 Troponin I 0.06 ng/Ml (<0.06) 03/13/20 02:00 NT-Pro-B Natriuret Pep 83438 pg/mL (<300) H 03/12/20 17:50 Total Protein 5.9 g/dL (6.4-8.2) L 03/14/20 06:45 Albumin 2.7 g/dL (3.4-5.0) L 03/14/20 06:45 Lipase 67 U/L (73-393) 03/12/20 17:50 TSH 0.63 uIU/mL (0.36-3.74) 03/13/20 06:56 Urine Color Yellow (Yellow) 03/12/20 17:55 Urine Clarity Clear (Clear) 03/12/20 17:55 Urine pH 5.5 (5-8) 03/12/20 17:55 Ur Specific Logan 1.025 (1.005-1.025) 03/12/20 17:55 Urine Protein 100 mg/dL (Negative) H 03/12/20 17:55 Urine Ketones Trace mg/dL (Negative) H 03/12/20 17:55 Urine Blood Negative (Negative) 03/12/20 17:55 Urine Nitrite Negative (Negative) 03/12/20 17:55 Urine Bilirubin Negative (Negative) 03/12/20 17:55 Urine Urobilinogen 1.0 EU/dL (Up TO 0.2) H 03/12/20 17:55 Ur Leukocyte Esterase Small (Negative) H 03/12/20 17:55 Urine RBC Negative HPF (0-2) 03/12/20 17:55 Urine WBC 10-20 HPF (0-5) H 03/12/20 17:55 Ur Epithelial Cells Few HPF (Negative) 03/12/20 17:55 Urine Crystals Negative HPF (Negative) 03/12/20 17:55 Urine Bacteria Moderate HPF (Negative) 03/12/20 17:55 Urine Casts 0-2 hyaline LPF (Negative) 03/12/20 17:55 Urine Mucus Heavy (Negative) 03/12/20 17:55 Urine Other Negative (Negative) 03/12/20 17:55 Ur Culture Indicated? Yes 03/12/20 17:55 Urine Glucose Negative mg/dL (Negative) 03/12/20 17:55 Coronavirus (PCR) Negative (Negative) 03/12/20 20:45 Hep B Core Total Ab Negative (Negative) 03/13/20 06:56 Hepatitis C Antibody Negative (Negative) 03/12/20 17:50
--- NOTE | 2020-03-15 18:02 | PDOC.CMPRO ---
- If Service Date Differs Date of service: 03/15/20 Time of Service: 18:02 Care Management Progress Note S/O: Enoc is improved but continues to experience shortness of breath with activity. He is tolerating a regular diet and is not scoring on the CIWA. He is currently on 3 ltrs of oxygen. He is lying in bed watching television when CM comes to meet with him. He is pleasant, talkative, and shares he hopes to be returning home to recuperate soon. CM will continue to follow. A: Enoc is a 65 year old man admitted to [facility] on 03/12/20 with hypoxia and ascites. P: Enoc will return home when medically cleared by provider. Anticipate he will need new home O2, as coordinated by respiratory therapy. He will follow up with his PCP and discharge plan of care as directed. His will drive him home when ready. CM will continue to support patient and discharge planning needs.
[2020-03-15] MEDS: Pantoprazole 40 MG VIAL IVP (20:41)
[2020-03-15] MEDS: Normal Saline Flush 10 ML SYR IVP (20:41)
[2020-03-16 00:10] VITALS: BP 125/83; PULSE 96; RESP 19; TEMP 37.1; O2SAT 92
[2020-03-16 03:49] VITALS: BP 96/49; PULSE 93; RESP 20; TEMP 36.7; O2SAT 95
[2020-03-16] MEDS: Heparin 5,000 UNITS/ML VIAL 5000 UNITS SC (06:16)
[2020-03-16 07:50] VITALS: BP 133/82; PULSE 81; RESP 19; TEMP 37.1; O2SAT 94
[2020-03-16] MEDS: Magnesium Gluconate 500 MG TAB PO (07:58)
[2020-03-16] MEDS: Furosemide 40 MG TAB PO (07:58)
[2020-03-16] MEDS: Cyanocobalamin 500 MCG TAB PO (07:58)
[2020-03-16] MEDS: Potassium Chloride 20 MEQ TABCR PO (07:58)
[2020-03-16] MEDS: predniSONE 20 MG TAB 40 MG PO (07:58)
[2020-03-16 08:03] VITALS: O2SAT 94
[2020-03-16] MEDS: Ipratropium/Albuterol 4 GM 120 PUFF INH IH ×2 (08:03→12:38)
[2020-03-16] MEDS: Budesonide/Formoterol 160/4.5 6 GM 60 PUFF INH IH (08:03)
--- NOTE | 2020-03-16 11:06 | DSE_ITS ---
Date of service: 03/16/20 Time of Service: 11:06 DS: Diagnosis Discharge Diagnosis (1) Right heart failure: Status: Acute (2) Cirrhosis with alcoholism: Status: Acute (3) Acute exacerbation of chronic obstructive pulmonary disease: Status: Suspected (4) Ascites due to alcoholic cirrhosis: Status: Acute (5) Pulmonary hypertension: Status: Acute Asessment and Plan: continuous oxygen, 3 liters with activity, 1 liter at rest Discharge Plan Disposition Patient Disposition: HOME Condition: Stable Discharge Details Chief Complaint: SOB Clinical Impression: Hypoxia, Acute exacerbation of chronic obstructive pulmonary disease, Ascites due to alcoholic cirrhosis, Elevated troponin, Elevated brain natriuretic pept am[place] (BNP) level Reason For Visit: HYPOXIA,CIRRHOSIS W/ASCITES,ELEVATED TROPPONIN/BNP Admit Date/Time: 03/12/20 19:12 Admit Provider: Saroj Swanson Attending Provider: Saroj Swanson Primary Care Provider: Jenny Khanna ED Provider: Tere Joseph Hospital Course Hospital Course: This is a 65 year old male, with history of tobacco and alcohol abuse who presented to the ED for evaluation of abdominal bloating, fatigue and constipation, He was diagnosed with cirrhosis, ascities and hypoxia, likely COPD but no formal diagnosis. He left against medical advice but returned 2 days later with worsening symptoms. This evaluation was more concerning for heart failure. He had received IV steroids and diuretics and agreed to hospitalization. He was placed on a lasix drip which he responded well to. His symptoms dramatically improved. He was weaned down to oral diuretics and continued to remain stable. He will be discharged on on continuous oxygen for pulmonary hypertension. he should have further cardiac and pulmonary evaluation outpatient through pcp. echocardiogram report: Conclusion Left Ventricle : The left ventricle is normal size. The overall left ventricular systolic function appears normal. There is normal left ventricular wall thickness. LVEF is 60%. The left ventricular diastolic function is normal. Right Ventricle : Right ventricle is severely dilated. Right ventricle is mildly hypokinetic. The estimated RVSP is 55 mmHg. Right ventricle is mildly hypertrophied. Atria : The left atrium size is normal. Right atrium is severely dilated. The interatrial septum is intact with no evidence for an atrial septal defect. Aortic Valve : The Aortic valve is sclerotic. Aortic valve is trileaflet. There is no aortic valvular stenosis. No aortic regurgitation is present. Mitral Valve : There is mitral annular calcification. No evidence of mitral valve stenosis. Mild mitral regurgitation. Tricuspid Valve : The tricuspid valve is normal in structure. There is no tricuspid valve stenosis. Moderate tricuspid regurgitation. Pulmonic Valve : The pulmonary valve is normal in structure. Great Vessels : The IVC is dilated and collapses <50% with inspiration. There is no prior echocardiogram available for comparison. Home Meds and New Rx's Prescriptions: New albuterol sulfate 90 mcg/actuation HFA aerosol inhaler 2 puff IH Q6H PRNQty: 6.7 RF: 0 furosemide 40 mg tablet 40 mg PO DAILY Qty: 30 RF: 0 Combivent Respimat 20-100 mcg/actuation mist 1 puff IH QID Qty: 4 RF: 0 budesonide-formoterol 160-4.5 mcg/actuation HFA aerosol inhaler 2 puff IH BID Qty: 10.2 RF: 0 magnesium gluconate 27 mg magnesium (500 mg) tablet 27 mg PO DAILY Qty: 30 RF: 0 Continued cyanocobalamin (vitamin B-12) [Vitamin B-12] 500 mcg tablet 500 mcg PO DAILY RF: 0 Discontinued cephalexin [Keflex] 500 mg capsule 500 mg PO BID 7 Days Qty: 14 RF: 0 Discharge Instructions Instructions: Heart Failure (DC), Pulmonary Arterial Hypertension (DC), Low- Sodium Diet (DC) Additional Instructions: wear your oxygen as directed, 3 liter by nasal cannula with activity and 1 liter at rest. No smoking No alcohol take your combivent inhaler prior to your symbicort one. weight yourself 2 times weekly and notify your primary care provider if you gain more than 5 pounds. Stand Alone Forms: Nursing Discharge Form Referrals: Jenny Khanna NP [Primary Care Provider] - 03/23/20 10:00 am (appointment via [facility] portal) Activity:: Activity as Tolerated Equipment/Supplies:: 3 liters with activity, 1 liter at rest Diet:: Low Sodium Discharge Orders Discharge Orders: Discharge Order (Routine); Ordered 03/16/20 Ordered By: Татьяна Nunez Discharge Data Discharge Date/Time-TO BE ENTERED AT DEPARTURE: 03/16/20 15:33 DS: Summary Status at Discharge Functional status at discharge: independent ambulation Overall status at discharge: patient is not back to baseline Mental Status: mental status grossly normal Speech and Movement: speech and movement normal Mood: congruent mood Affect: normal affect Exam Narrative Exam Narrative: General: cooperative, comfortable, no acute distress and well developed Nutritional Appearance: average body habitus Orientation: alert, awake and oriented x3 HENMT Head: normal to inspection Mouth: oral mucosae normal Resp Effort & Inspection: normal respiratory effort Auscultation: diminished lung sounds bilaterally in the lower lung de leon Cardio Rate: regular rate Rhythm: regular rhythm GI Inspection: distended Palpation: ascites Auscultation: normal bowel sounds General: other (franco draining medium, brownish urine with blood streaks and sediment) Neuro General: patient alert, patient awake and patient oriented x3 Extrem General: normal to inspection, full ROM and edema Laterality: bilateral Psych Appearance: grossly normal Affect: normal affect Attitude: cooperative Thought Process: normal Thought Content: normal Psych Mental Status: mental status grossly normal Speech and Movement: speech and movement normal Mood: congruent mood Affect: normal affect DS: Data Vitals/I&O Vitals and I&O: Vital Signs Temperature 37.1 C 03/16/20 07:50 Temperature Source Tympanic 03/16/20 07:50 Pulse 81 03/16/20 07:50 Pulse Rhythm Regular 03/16/20 06:09 Pulse 88 03/12/20 19:31 Respiratory Rate 19 03/16/20 07:50 Respiratory Effort Non-Labored 03/16/20 06:09 Respiratory Depth Normal 03/16/20 06:09 Respiratory Pattern Normal 03/16/20 06:09 Blood Pressure 133/82 03/16/20 07:50 Blood Pressure Mean 90 03/12/20 19:30 Blood Pressure Position Sitting 03/12/20 17:23 Pulse Oximetry 94 L 03/16/20 08:03 Oxygen Delivery Method Nasal Cannula 03/16/20 08:03 Oxygen Flow Rate 2 03/16/20 08:03 Pain Level 0 03/16/20 07:50 Intake & Output 03/15/20 03/15/20 03/16/20 11:59 23:59 11:59 Intake Total 240 / 490 250 / 490 480 / 480 Output Total 1300 / 4325 3025 / 4325 Balance -1060 / -3835 -2775 / -3835 480 / 480 Weight 71.9 kg 69.6 kg Intake: Oral 240 / 490 250 / 490 480 / 480 Output: Urine 1300 / 4325 3025 / 4325 Other: Urine Color Yellow Yellow Urine Appearance Clear Clear Clear Urine Odor None Stool Size Small Stool Characteristics Soft Voiding Methods Urinal Toilet Data Completed and Pending Labs on day of discharge: Labs from last 24 hours 03/12/20 07:00 Tumor Marker AFP <2.5 [facility] Medical History (Updated 03/16/20 @ 12:26 by Татьяна Nunez NP) Cirrhosis with alcoholism (Acute) Diagnosis per CT findings COPD (chronic obstructive pulmonary disease) (Chronic) No formal PFTs have been performed. Diagnosis based on emphysematous changes on chest x-ray and CT scan and longstanding smoking history Pulmonary hypertension (Acute) Surgical History H/O hernia repair (Chronic) 1964 and 1972 Family History Mother , age 87 No problems noted. Father , age 66 Cancer Brother , age 67 Stroke Brother No problems noted. Maternal Grandfather No problems noted. Paternal Grandfather , age 90 No problems noted. Maternal Grandmother , age 70+ No problems noted. Paternal Grandmother , age 90 No problems noted. Social History (Updated 02/22/20 @ 11:01 by Srinivas Martin) Smoking/Tobacco Use Status: Current every day Tobacco Type: cigarettes Tobacco: How many years used: 50 Quit status: not considering quitting Second Hand Exposure: Yes Alcohol Intake: current Alcohol Intake frequency: 3 or more drinks per day Alcohol type: beer Drug use: Never Substance use type: does not use Caregiver/Support person: No Household members: spouse Housing: house Communication Needs: Corrective Lenses Do you need help understanding health information?: Rarely Pets and animals: No Sexually active: Yes Do you think of yourself as: straight/heterosexual Current gender identity: male What is your relationship status?: How often do you talk on the phone with friends or family?: once per week How often do you get together with friends or relatives?: three or more times per week How often do you attend restorationist or gnosticist services?: decline to answer Do you belong to any clubs or organized social groups?: no Panel score (0-1 are the most socially isolated patients): 2 What type of physical activity do you participate in: other Details: farming, firewood Duration: decline to answer Frequency: daily Hortencia/Muslim: Confucianist Special hortencia needs: No Seatbelt use: sometimes Drive intox or ride w/intox recycle driver: No Do you feel safe at home: Yes Do you feel safe in your relationship?: Yes
[2020-03-16 11:28] VITALS: BP 131/83; PULSE 78; RESP 18; TEMP 37.1; O2SAT 90
[2020-03-16 11:53] VITALS: PULSE 78; PULSE 81; PULSE 87; RESP 16; RESP 18; O2SAT 87; O2SAT 90; O2SAT 93
--- NOTE | 2020-03-16 15:02 | PDOC.CMDIS ---
- If Service Date Differs Date of service: 03/16/20 Time of Service: 15:02 LACE Index Scoring Tool - Questions: Length of Stay (in days): 4 - 6 Acuity (Admit via E.D.?): Yes Comorbidities: Chronic Pulmonary Disease E.D. Visits: 2 - Answers: Total Score: 11 Risk of Readmission: High Risk Care Management Discharge Reason for Hospitalization: Right heart failure Discharge Plan: Enoc will return home with no new services. He will follow up with his PCP and discharge plan of care. Sindy will transport via private vehicle with his . Patient/Family Education Needs: Discharge plan, limitations, follow up plan, Ask Me Three.
== END 2020-03-16 15:33 | disposition home or self-care (01) | DRG 292 ==
LOC: ER 19:32 → RCU 20:46 → MS 03-13 19:55 → RCU 03-17 09:57
PROVIDERS: Family Medicine; Surgery; Admitting Provider Internal Medicine; Emergency Provider Physician Assistant; PCP Nurse Practitioner; Visit Provider Internal Medicine
DX: I50.810 Right heart failure, unspecified (principal); J44.1 Chronic obstructive pulmonary disease with (acute) exacerbation; J90 Pleural effusion, not elsewhere classified; K70.31 Alcoholic cirrhosis of liver with ascites; F10.20 Alcohol dependence, uncomplicated; R53.83 Other fatigue; R09.02 Hypoxemia; R06.02 Shortness of breath; I27.20 Pulmonary hypertension, unspecified; I08.1 Rheumatic disorders of both mitral and tricuspid valves; R79.89 Other specified abnormal findings of blood chemistry; Z87.891 Personal history of nicotine dependence
CPT/HCPCS: 36415; 80048; 80053; 82805; 83690; 86704; 86803; 87449; 93005; 93306; 94618; 94640; 96374; 96375; 99222; 99223; 99233; 99239; 99253; 99285; NC; U0003; 36600; 71045; 81003; 81015; 82105; 82140; 83735; 83880; 84443; 84484; 85025; 85610; 85730; 87086; 93010; J1644; J1940; J2930; J3490; J7512

== ENCOUNTER 2020-03-28 08:22 | Outpatient (CLI) | payer MEDICARE, SELFPAY | END 2020-03-28 08:42 | PROVIDERS: PCP Nurse Practitioner; Visit Provider Internal Medicine Cardiovascular Disease | DX: I50.810 Right heart failure, unspecified (principal); I27.20 Pulmonary hypertension, unspecified; J44.9 Chronic obstructive pulmonary disease, unspecified; K70.31 Alcoholic cirrhosis of liver with ascites | CPT/HCPCS: 99203; 99214 ==

== ENCOUNTER 2020-03-30 02:39 | Outpatient (CLI) | payer MEDICARE, SELFPAY ==
[2020-03-30 08:03] LABS: Anion Gap 3.1 mmol/L (3-11); BUN 21 mg/dL (7-18); CO2 38.9 mmol/L (21.0-32.0); CREATININE 0.81 mg/dL (0.70-1.30); Calcium 9.1 mg/dL (8.5-10.1); Chloride 96 mmol/L (98-107); Glucose 139 mg/dL (74-106); Potassium 4.1 mmol/L (3.5-5.1); Sodium 138 mmol/L (136-145)
== END 2020-03-30 02:59 ==
PROVIDERS: PCP Nurse Practitioner; Visit Provider Nurse Practitioner
DX: I50.810 Right heart failure, unspecified (principal)
CPT/HCPCS: 36415; 80048

== ENCOUNTER 2021-07-02 03:56 | Outpatient (CLI) | payer MEDICARE, SELFPAY ==
[2021-07-02 09:14] LABS: ALT 33 U/L (16-63); AST 18 U/L (15-37); Albumin 3.9 g/dL (3.4-5.0); Alkaline Phosphatase 89 U/L (46-116); Anion Gap 7.6 mmol/L (3-11); BUN 13 mg/dL (7-18); Bilirubin, Total 0.5 mg/dL (0.2-1.0); CO2 28.4 mmol/L (21.0-32.0); CREATININE 0.7 mg/dL (0.70-1.30); Calcium 8.8 mg/dL (8.5-10.1); Chloride 105 mmol/L (98-107); Glucose 92 mg/dL (74-106); Potassium 4.3 mmol/L (3.5-5.1); Sodium 141 mmol/L (136-145); Total Protein 6.9 g/dL (6.4-8.2)
== END 2021-07-02 03:57 | disposition home or self-care (01) ==
LOC: LBO 03:56
PROVIDERS: PCP Nurse Practitioner; Visit Provider Nurse Practitioner
DX: R73.03 Prediabetes (principal); K70.31 Alcoholic cirrhosis of liver with ascites
CPT/HCPCS: 36415; 80053; 83036

== ENCOUNTER 2022-08-08 04:09 | Outpatient (CLI) | payer MEDICARE, SELFPAY ==
[2022-08-08 12:11] LABS: Anion Gap 4.8 mmol/L (3-11); BUN 16 mg/dL (7-18); CO2 34.2 mmol/L (21.0-32.0); CREATININE 0.9 mg/dL (0.70-1.30); Calcium 9.2 mg/dL (8.5-10.1); Chloride 102 mmol/L (98-107); Estimated GFR 93.61 (mL/min/1.73m2); Glucose 113 mg/dL (74-106); Potassium 3.9 mmol/L (3.5-5.1); Sodium 141 mmol/L (136-145)
== END 2022-08-08 04:10 | disposition home or self-care (01) ==
LOC: LBO 04:09
PROVIDERS: PCP Nurse Practitioner; Visit Provider Nurse Practitioner Family
DX: I50.810 Right heart failure, unspecified (principal)
CPT/HCPCS: 36415; 80048

== ENCOUNTER 2023-09-24 12:58 | Outpatient (CLI) | payer MEDICARE, SELFPAY ==
[2023-09-24 08:13] LABS: Hemoglobin A1C 5.8 % (<5.7)
[2023-09-24 14:00] LABS: ALT 27 U/L (16-63); AST 15 U/L (15-37); Albumin 3.9 g/dL (3.4-5.0); Alkaline Phosphatase 110 U/L (46-116); Anion Gap 8.7 mmol/L (3-11); BUN 14 mg/dL (7-18); Bilirubin, Total 0.5 mg/dL (0.2-1.0); CO2 31.3 mmol/L (21.0-32.0); Calcium 9.5 mg/dL (8.5-10.1); Calculated LDL 84 mg/dL (<100); Chloride 100 mmol/L (98-107); Cholesterol 158 mg/dL (<200); Estimated GFR 81.98 (mL/min/1.73m2); Glucose 118 mg/dL (74-106); HDL Cholesterol 49 mg/dL (40-60); Sodium 140 mmol/L (136-145); Total Protein 7.6 g/dL (6.4-8.2); Triglyceride 126 mg/dL (<150)
== END 2023-09-24 12:59 | disposition home or self-care (01) ==
LOC: LBO 12:58
PROVIDERS: PCP Nurse Practitioner Family; Visit Provider Nurse Practitioner Family
DX: I27.20 Pulmonary hypertension, unspecified (principal); I50.810 Right heart failure, unspecified; J44.9 Chronic obstructive pulmonary disease, unspecified; K70.30 Alcoholic cirrhosis of liver without ascites; R73.03 Prediabetes; Z00.00 Encounter for general adult medical examination without abnormal findings; Z87.891 Personal history of nicotine dependence; E78.5 Hyperlipidemia, unspecified
CPT/HCPCS: 36415; 80053; 80061; 83036

== ENCOUNTER 2024-10-12 03:00 | Outpatient (CLI) | payer MEDICARE, SELFPAY ==
[2024-10-12 08:25] LABS: HCT 45.2 % (40.0-50.0); HGB 14.8 g/dL (13.5-17.5); MCH 32.5 pg (27.0-33.0); MCHC 32.7 % (32.0-36.0); MCV 99 fL (80-95); MPV 8.5 fL (8.0-11.0); Platelet Count 246 10^3/uL (130-400); RBC 4.56 10^6/uL (4.36-5.78); RDW 12.9 % (11.8-14.1); RDW-SD 47.2 fL
[2024-10-12 08:43] LABS: ALT 29 U/L (16-63); AST 13 U/L (15-37); Albumin 3.8 g/dL (3.4-5.0); Alkaline Phosphatase 106 U/L (46-116); Anion Gap 8.7 mmol/L (3-11); BUN 16 mg/dL (7-18); Bilirubin, Total 0.39 mg/dL (0.2-1.0); CO2 32.3 mmol/L (21.0-32.0); Calculated LDL 87 mg/dL (<100); Chloride 101 mmol/L (98-107); Cholesterol 162 mg/dL (<200); Estimated GFR 81.47 (mL/min/1.73m2); Glucose 89 mg/dL (74-106); HDL Cholesterol 52 mg/dL (40-60); Potassium 3.9 mmol/L (3.5-5.1); Sodium 142 mmol/L (136-145); Total Protein 7.5 g/dL (6.4-8.2); Triglyceride 116 mg/dL (<150)
[2024-10-12 08:44] LABS: Hemoglobin A1C 6.2 % (<5.7)
[2024-10-12 18:37] LABS: PSA, Screening <0.1 ng/mL (<=4.5)
== END 2024-10-12 03:01 | disposition home or self-care (01) ==
LOC: LBO 03:00
PROVIDERS: PCP Nurse Practitioner Family; Visit Provider Nurse Practitioner Family
DX: R73.03 Prediabetes (principal); Z00.00 Encounter for general adult medical examination without abnormal findings; I27.20 Pulmonary hypertension, unspecified; K70.31 Alcoholic cirrhosis of liver with ascites; J44.9 Chronic obstructive pulmonary disease, unspecified; E78.5 Hyperlipidemia, unspecified; Z12.5 Encounter for screening for malignant neoplasm of prostate
CPT/HCPCS: 36415; 80053; 80061; 84153; 85027; 83036

== ENCOUNTER → 2025-10-11 01:57 | Outpatient (CLI) | payer MEDICARE, SELFPAY ==
--- NOTE | 2025-10-11 06:15 | DI.US_ITS ---
APPROVED REPORT EXAM: Comprehensive 2D, Doppler, and color-flow Echocardiogram Patient Location: Out-Patient Field Evidence Technician: Fanta Marshall RDCS (AE) Indications: Right heart failure Other Information Study Quality: Adequate Conclusion Normal left ventricular wall thickness and chamber size. Ejection fraction is 55 to 60%. Wall motion is normal Moderately dilated right ventricle with preserved systolic function Both atria are mildly dilated There is no structural or hemodynamically significant valvular disease Right ventricular systolic pressure could not be estimated Wall motion Left Ventricle The left ventricle is normal size. The left ventricular systolic function is normal. The left ventricular ejection fraction is within the normal range. There is normal left ventricular wall thickness. There is normal LV segmental wall motion. There is no ventricular septal defect visualized. LVEF is 58%. Right Ventricle Right ventricle is moderately dilated. The right ventricular systolic function is normal. Atria The left atrium is mildly dilated Right atrium is mildly dilated. The interatrial septum is intact with no evidence for an atrial septal defect. Aortic Valve The aortic valve is normal in structure. Aortic valve is trileaflet. There is no aortic valvular stenosis. No aortic regurgitation is present. Mitral Valve The mitral valve is normal in structure. No evidence of mitral valve stenosis. Trace mitral regurgitation. Tricuspid Valve The tricuspid valve is normal in structure. There is no tricuspid valve stenosis. Trace to mild tricuspid regurgitation. Unable to assess PA pressure. Pulmonic Valve The pulmonary valve is normal in structure. There is no pulmonic valvular stenosis. There is no pulmonic valvular regurgitation. Great Vessels The aortic root is normal in size. Ascending aorta is not well visualized. Aortic arch is not well visualized. IVC is normal in size and collapses >50% with inspiration. Pericardium There is no pericardial effusion. 2D Dimensions IVSD d PLAX 0.80 cm M: 0.6-1.2 Ao Root d 2.92 cm M: 3.1 - 3.7 LVPW d PLAX 0.84 cm M: 0.6 - 1.2 LVID d PLAX 4.80 cm M: 4.2 - 5.8 LVDs 3.33 cm M: 2.5 - 4.0 LV EF Teichholz 58.0 % FS 30.58 % LV EDV (Teich) 107.6 mL LV ESV (Teich) 45.2 mL M-Mode TAPSE 1.70 cm (M/F) >1.7 Auto EF LV EDV A4C 92.2 mL LV EDV A2C 127.0 mL LV EDV BP 110.4 mL LV ESV A4C 39.6 mL LV ESV A2C 52.9 mL LV ESV BP 46.1 mL LVEF(%) A4C 57.0 % LVEF(%) A2C 58.3 % LVEF(%) BP 58.3 % LV SV A4C 52.5 ml LV SV A2C 74.1 ml LV SV BP 64.4 ml LV CO A4C 3.4 L/min LV CO A2C 4.9 L/min LV CO BP 4.2 L/min HR A4C 65.20 BPM HR A2C 66.77 BPM LV EDV Index (BP) RV Strain Global Peak Long. Strain A4C 9.71 Global Peak Long. Strain A4C FW 8.84 LA Volume LA Length A4C 5.6 cm LA Length A2C 5.6 cm LA Area A4C s 16.27 cm2 LA Area A2C s 15.21 cm2 LA Vol A4C A-L 40.28 mL LA Vol A2C A-L 35.34 mL LA Vol Biplane A-L 37.8 mL LA Vol/BSA A4C A-L LA Vol/BSA A2C A-L LA Vol/BSA BP A-L 21.6 mL/m2 LA Vol A4C MOD 37.0 mL LA Vol A2C MOD 34.5 mL LA Vol BP MOD 35.3 mL RA Volume RA Area A4C 14.9 cm2 RA ESV A4C (A-L) 40.7mL RA Vol/BSA A4C A-L RA Length A4C 4.6 cm RA ESV A4C (MOD) 39.1mL LV Diastology MV E' medial 0.067 (>0.07 m/s) MV E Vmax 0.65 (0.4-1.3 m/s) MV E/E' MED 9.82 (<14) MV A Vmax 0.95 (0.4-1.3 m/s) MV E' lateral 0.072 (>0.1 m/s) E/A Ratio 0.7 MV E/E' LAT 9.09 (<14) MV E' Average 0.069 m/s MV E/E'(average) 9.44 Aortic Valve AoV Vmax 1.34 m/s LVOT Vmax 0.87 m/s AoV Peak Grad 7.2 mmHg LVOT Peak Grad 3.0 mmHg AoV Area (Vmax) 2.02 cm2 LVOT VTI 0.187 m AoV VTI 0.286 m LVOT Mean Grad 2.0 mmHg AoV Mean Garth. 0.98 m/s LVOT SV 58.15 mL AoV Mean Grad 4.3 mmHg LVOT Diam s 1.95 cm AoV Area (VTI) 2.03 cm2 AV Regurg Peak Gr. 7.17 mmHg Velocity Ratio 0.65 Mitral Valve MV DT 377 (160-240 msec) MV Vmax TIPS 0.86 m/s MV Mean Grad 1.3 (<2mmHg) MV VTI 0.286 m Pulmonary Valve PV Vmax 0.81 (0.5-1.5 m/s) RVOT Vmax 0.77 m/s PV Peak Grad 2.6 mmHg RVOT Peak Gr. 2.4 mmHg PV Mean Garth 0.56 m/s RVOT VTI 0.109 m PV Mean Grad 1.5 mmHg RVOT Mean Gr. 1.2 mmHg Tricuspid Valve RA Pressure 3.00 mmHg TV S' 0.14 m/s
--- NOTE | 2025-10-11 07:51 | DI.CTLCSR_ITS ---
Exam(s) CT CHEST LUNG CANCER SCREEN EXAM: CT CHEST LUNG CANCER SCREEN CLINICAL HISTORY: Screening for lung cancer,FORMER SMOKER, Z87.891 TECHNIQUE: Imaging Protocol: Axial computed tomography images with coronal and sagittal reformatted images were created and reviewed. Low dose screening protocol. COMPARISON: CT CT CHEST PE ABD PELVIS W from 03/10/2020 CR,XR XR PORTABLE CHEST AP from 03/12/2020 FINDINGS: Tracheobronchial tree: No bronchiectasis or mucus plugging. Mediastinum and Sarita: No dominant adenopathy or fluid collection. Pulmonary parenchyma: Limited evaluation due to respiratory motion. No consolidation or dominant measurable mass. Moderate emphysematous changes. Upper lobe following and interstitial changes. Interstitial changes. Lung Nodules: None. Pleura: No effusion. No pneumothorax. Heart: The heart is not dilated. Mild coronary artery calcifications are seen. No pericardial effusion. Aorta: Thoracic aorta non-dilated. Upper abdomen: Unremarkable. Bones: Unremarkable for age. Soft Tissues: Unremarkable. IMPRESSION: No suspicious pulmonary nodules. Lung RADS Cat 1 - Negative: No nodules and definitely benign nodules Lung-RADS 1.0 CATEGORIES: Category 0 - Prior chest CT exam(s) being located for comparison. Category 1 - Annual screening in 12 months. No nodules or definitely benign nodules. Category 2 - Annual screening in 12 months. Benign appearance. Nodules with low likelihood of becoming active cancer. Category 3 - 6-month follow-up. Probably benign. Short-term follow-up suggested. Nodules with low likelihood of becoming active cancer. Category 4A - 3-month follow-up and CT/PET if >8 mm in size. Suspicious finding. Findings which require additional testing. Category 4B - Findings which require additional testing and tissue sampling. Category 4X - Category 3 or 4 nodules with additional features or imaging findings that increases the suspicion of malignancy. Modifier S- Potentially clinically significant findings (non lung cancer) RADIATION DOSE DELIVERED: 25.96mGy.cm Total DLP DATA REPOSITORY: All CT scans at this facility are submitted to the National Radiology Data Registry (NRDR) Dose Index Registry (DIR) with the [employer] ([employer]). RADIATION OPTIMIZATION: All CT scans at this facility use at least one of these dose optimization techniques: automated exposure control; mA and/or kV adjustment per patient size (includes targeted exams where dose is matched to clinical indication); or iterative reconstruction.
== END ==
LOC: DI 01:57
PROVIDERS: PCP Nurse Practitioner Family; Visit Provider Nurse Practitioner Family
DX: I50.810 Right heart failure, unspecified (principal); Z87.891 Personal history of nicotine dependence
CPT/HCPCS: 71271; 93306